=== PATIENT | male | born 1945 | race Caucasian/White ===

== ENCOUNTER 2018-09-06 13:33 | Inpatient (IN) | payer OTHER ==
--- NOTE | 2018-09-06 13:43 | EDPHY ---
H & P Time Seen by Provider: 09/06/18 13:43 HPI/ROS: CHIEF COMPLAINT: [ ] HISTORY OF PRESENT ILLNESS: [Need 4: Location, Duration, Severity, Quality, Context, Timing Modifying Factors, Associated S&S] REVIEW OF SYSTEMS: A comprehensive 10 point review of systems is otherwise negative aside from elements mentioned in the history of present illness. Source: Patient Exam Limitations: No limitations - Medical/Surgical History Hx Asthma: No Hx Chronic Respiratory Disease: No Hx Diabetes: No Hx Cardiac Disease: No Hx Renal Disease: No Hx Cirrhosis: No Hx Alcoholism: No Hx HIV/AIDS: No Hx Splenectomy or Spleen Trauma: No Other PMH: PMH: arrythmia (benign?), GERD, bursitis,. PSH: tonsillectomy - Social History Smoking Status: Never smoked - Physical Exam Exam: General Appearance: [Alert, no distress] Eyes: [Pupils equal and round no pallor or injection] ENT, Mouth: [Mucous membranes moist] Respiratory: [There are no retractions, lungs are clear to auscultation] Cardiovascular: [Regular rate and rhythm] Gastrointestinal: [Abdomen is soft and nontender, no masses, bowel sounds normal] Neurological: [A&O, normal motor function, normal sensory exam, normal cranial nerves] Skin: [Warm and dry, no rashes] Musculoskeletal: [Neck is supple nontender] Extremities: [symmetrical, full range of motion] Psychiatric: [Patient is oriented X 3, there is no agitation] Allergies/Adverse Reactions: No Known Allergies Allergy (Verified 09/06/18 13:42) Home Medications: Medication Instructions Recorded Lisinopril [Zestril 20 mg (*)] 20 mg PO DAILY 10/30/15 Omeprazole [Prilosec] 40 mg PO DAILY 10/30/15 Departure - Departure Condition: Fair Referrals: Patient,NotPresent [Primary Care Provider] - As per Instructions
--- NOTE | 2018-09-06 13:51 | EDPHY ---
H & P Time Seen by Provider: 09/06/18 13:43 HPI/ROS: Chief complaint. Syncope HPI. 72-year-old male presents emergency department by EMS after syncopal episode. He was standing at a store and felt a pain at the back of his neck. He then had syncopal episode. Duration is unknown. Per EMS and the rhythm strip shows frequent PVCs about every 4th beat. Patient denies chest discomfort or shortness of breath. No abdominal pain. He feels generally weak. He had a dog bite to his left hand by family pet 2 days ago. It is now red and swollen. He has had previous syncope. Previous workup that shows arrhythmia but unknown whether this is benign or malignant. No fever cough. No unusual leg pain or swelling ROS 10 systems were reviewed and negative with the exception of the elements mentioned in the history of present illness Past Medical/Surgical History: A arrhythmia, GERD, bursitis, tonsillectomy Social History: , nonsmoker, no alcohol Smoking Status: Never smoked Physical Exam: General Appearance: Alert well-developed male mild distress vital signs stable Eyes: Pupils equal and round no pallor or injection. ENT, Mouth: Mucous membranes are moist. Respiratory: There are no retractions, lungs are clear to auscultation. Cardiovascular: Regular rate and rhythm. Gastrointestinal: Abdomen is soft and nontender, no masses, bowel sounds normal. Neurological: Awake and alert, sensory and motor exams grossly normal. Skin: Warm and dry, no rashes. Musculoskeletal: Neck is supple nontender. Extremities symmetrical, full range of motion. Left hand shows evidence of dog bite with now swelling and erythema especially the base of his right index finger and extending into the hand Psychiatric: Patient is oriented X 3, there is no agitation. Constitutional: Initial Vital Signs Temperature (C) 36.5 C 09/06/18 13:42 Heart Rate 88 09/06/18 13:42 Respiratory Rate 16 09/06/18 13:42 Blood Pressure 125/74 H 09/06/18 13:42 O2 Sat (%) 96 09/06/18 13:42 O2 Delivery Mode Room Air Allergies/Adverse Reactions: No Known Allergies Allergy (Verified 09/06/18 13:42) Home Medications: Medication Instructions Recorded Lisinopril [Zestril 20 mg (*)] 20 mg PO DAILY 10/30/15 Medical Decision Making - Diagnostics EKG Interpretation: EKG interpreted by me shows normal sinus rhythm normal interval and axis. QRS is normal. There is no significant ST elevation or depression. There is 1 PVC. Rate is 89 rhythm strip showed frequent PVCs Imaging Results: Imaging Impressions Chest X-Ray 09/06/18 13:53 Impression: 1. No acute pulmonary disease. 2. Consider chest two views when the patient's medical condition permits. Procedures: IV normal saline, monitor ED Course/Re-evaluation: Re-evaluation patient is stable. Patient and I discussed imaging lab an EKG results. We discussed treatment plan including recommendation for admission. He expresses understanding and agreement Differential Diagnosis: I considered acute coronary syndrome, dysrhythmia. Patient also has infected dog bite left hand. - Data Points Laboratory Results: Laboratory Results 09/06/18 13:45 09/06/18 13:45 09/06/18 09/06/18 09/06/18 13:50 13:45 13:45 WBC 14.07 10^3/uL H 10^3/uL (3.80-9.50) RBC 5.23 10^6/uL 10^6/uL (4.40-6.38) Hgb 16.4 g/dL g/dL (13.7-17.5) Hct 48.1 % % (40.0-51.0) MCV 92.0 fL fL (81.5-99.8) MCH 31.4 pg pg (27.9-34.1) MCHC 34.1 g/dL g/dL (32.4-36.7) RDW 13.6 % % (11.5-15.2) Plt Count 194 10^3/uL 10^3/uL (150-400) MPV 10.9 fL fL (8.7-11.7) Neut % (Auto) 69.7 % % (39.3-74.2) Lymph % (Auto) 19.5 % % (15.0-45.0) [place] % (Auto) 8.7 % % (4.5-13.0) Eos % (Auto) 1.1 % % (0.6-7.6) Baso % (Auto) 0.6 % % (0.3-1.7) Nucleat RBC Rel Count 0.0 % % (0.0-0.2) Absolute Neuts (auto) 9.80 10^3/uL H 10^3/uL (1.70-6.50) Absolute Lymphs (auto) 2.75 10^3/uL 10^3/uL (1.00-3.00) Absolute Monos (auto) 1.23 10^3/uL H 10^3/uL (0.30-0.80) Absolute Eos (auto) 0.16 10^3/uL 10^3/uL (0.03-0.40) Absolute Basos (auto) 0.08 10^3/uL 10^3/uL (0.02-0.10) Absolute Nucleated RBC 0.00 10^3/uL 10^3/uL (0-0.01) Immature Gran % 0.4 % % (0.0-1.1) Immature Gran # 0.05 10^3/uL 10^3/uL (0.00-0.10) Sodium 135 mEq/L mEq/L (135-145) Potassium 5.0 mEq/L mEq/L (3.5-5.2) Chloride 102 mEq/L mEq/L (97-110) Carbon Dioxide 22 mEq/l mEq/l (22-31) Anion Gap 11 mEq/L mEq/L (6-14) BUN 34 mg/dL H mg/dL (7-23) Creatinine 1.7 mg/dL H mg/dL (0.7-1.3) Estimated GFR 40 Glucose 109 mg/dL H mg/dL (70-100) Calcium 9.7 mg/dL mg/dL (8.5-10.4) POC Troponin I 0.00 ng/mL ng/mL (0.00-0.08) NT-Pro-B Natriuret Pep 458 pg/mL H pg/mL (0-125) Medications Given: Discontinued Medications Amoxicillin/Clavulanate Potassium (Augmentin 875mg) 875 mg PO EDNOW ONE PRN Reason: Protocol Stop: 09/06/18 14:24 Last Admin: 09/06/18 14:41 Dose: 875 mg Sodium Chloride (Ns) 1,000 mls @ 0 mls/hr IV EDNOW ONE; Wide Open PRN Reason: Protocol Stop: 09/06/18 13:54 Last Admin: 09/06/18 14:04 Dose: 1,000 mls Point of Care Test Results: Chemistry 09/06/18 13:50 POC Troponin I 0.00 ng/mL ng/mL (0.00-0.08) Departure - Departure Disposition: [facility]patient Acute Clinical Impression: Syncope Qualifiers: Syncope type: unspecified Qualified Code(s): R55 - Syncope and collapse Cellulitis Qualifiers: Site of cellulitis: extremity Site of cellulitis of extremity: upper extremity Laterality: left Qualified Code(s): L03.114 - Cellulitis of left upper limb Condition: Fair
[2018-09-06] MEDS ORDERED: NS 1,000 ML IV ONE (13:53)
[2018-09-06 14:01] LABS: PLATELET COUNT 194 10^3/uL (150-400)
[2018-09-06] MEDS ORDERED: AMOXICILLIN/CLAVULANATE POT 875/125 MG TAB PO ONE (14:23)
[2018-09-06] MEDS ORDERED: PROMETHAZINE HCL 25 MG/ML INJ IVP PRN (15:08)
[2018-09-06] MEDS ORDERED: ONDANSETRON DISINTEGRATING 4 MG TAB PO PRN (15:08)
[2018-09-06] MEDS ORDERED: ACETAMINOPHEN 325 MG TAB PO PRN (15:08)
[2018-09-06] MEDS ORDERED: ONDANSETRON 4 MG/2 ML VIAL IVP PRN (15:08)
[2018-09-06] MEDS ORDERED: NS 1,000 ML IV SCH (15:15)
--- NOTE | 2018-09-06 15:48 | PDGENHP ---
History and Physical - Chief Complaint syncope - History of Present Illness 72 yo M with PMH of HTN presenting following a syncopal event at work today. 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 He states he essentially crumpled behind the register, did not strike his head or neck or suffer any other injuries on the way down. He felt essentially normal when he woke up and currently feels normal. He notes the pain in the back of his head seems gone currently. He states he had a similar episode about 3 years ago at which time he fainted while in the shower--he was seen by a field adjuster through [facility] at that time, wore a heart monitor for 3 months and had no reason for his syncope discovered. Reviewed notes from Dr. Keith Martinez whom he saw at that time, he underwent a stress echo which was limited but not clearly abnormal, a nuc stress was recommended but at that time he declined. He does note that he occasionally will have what he describes as dizzy spells that are sometimes associated with vision changes where he will feel like his eyes cannot align on things properly. He has seen his usual doctor about this but there has been no etiology for this discovered either--unclear what workup was completed. He notes that earlier in the week his dog bit his hand when he startled him from sleep, he has redness and swelling around his left 2nd and 3rd fingers and some streaking redness from the area as well. He denies having any fevers or chills and states that hand has not been bothering him very much. He does know that his dog is up to date on his shots etc. History Information - Allergies/Home Medication List Allergies/Adverse Reactions: No Known Allergies Allergy (Verified 09/06/18 13:42) Home Medications: Lisinopril [Zestril 20 mg (*)] 20 mg PO DAILY 10/30/15 [Last Taken 09/06/18] I have personally reviewed and updated: family history, medical history, social history, surgical history - Past Medical History GERD, hypertension, migraines - Surgical History Reports: cholecystectomy Additional surgical history: cataract surgery - Family History Positive for: non-pertinent - Social History Smoking Status: Never smoked Alcohol Use: None Drug Use: None Additional social history: , has epilepsy Review of Systems Review of Systems: ROS: 10pt was reviewed & negative except for what was stated in HPI & below Physical Exam Physical Exam: Temp Pulse Resp BP Pulse Ox 36.5 C 84 18 113/68 96 09/06/18 13:42 09/06/18 15:30 09/06/18 15:30 09/06/18 15:30 09/06/18 15:30 Constitutional: no apparent distress, appears nourished Eyes: PERRL, anicteric sclera Ears, Nose, Mouth, Throat: moist mucous membranes, hearing normal Cardiovascular: regular rate and rhythym, no murmur, rub, or gallop, edema Respiratory: no respiratory distress, no rales or rhonchi, clear to auscultation Gastrointestinal: normoactive bowel sounds, soft, non-tender abdomen Genitourinary: no bladder tenderness Skin: warm, normal color Musculoskeletal: full muscle strength, no muscle tenderness Neurologic: AAOx3 Psychiatric: interacting appropriately, not anxious, not encephalopathic Lab Data & Imaging Review 09/06/18 13:45 09/06/18 13:45 WBC 14.07 10^3/uL (3.80-9.50) H 09/06/18 13:45 RBC 5.23 10^6/uL (4.40-6.38) 09/06/18 13:45 Hgb 16.4 g/dL (13.7-17.5) 09/06/18 13:45 Hct 48.1 % (40.0-51.0) 09/06/18 13:45 MCV 92.0 fL (81.5-99.8) 09/06/18 13:45 MCH 31.4 pg (27.9-34.1) 09/06/18 13:45 MCHC 34.1 g/dL (32.4-36.7) 09/06/18 13:45 RDW 13.6 % (11.5-15.2) 09/06/18 13:45 Plt Count 194 10^3/uL (150-400) 09/06/18 13:45 MPV 10.9 fL (8.7-11.7) 09/06/18 13:45 Neut % (Auto) 69.7 % (39.3-74.2) 09/06/18 13:45 Lymph % (Auto) 19.5 % (15.0-45.0) 09/06/18 13:45 [place] % (Auto) 8.7 % (4.5-13.0) 09/06/18 13:45 Eos % (Auto) 1.1 % (0.6-7.6) 09/06/18 13:45 Baso % (Auto) 0.6 % (0.3-1.7) 09/06/18 13:45 Nucleat RBC Rel Count 0.0 % (0.0-0.2) 09/06/18 13:45 Absolute Neuts (auto) 9.80 10^3/uL (1.70-6.50) H 09/06/18 13:45 Absolute Lymphs (auto) 2.75 10^3/uL (1.00-3.00) 09/06/18 13:45 Absolute Monos (auto) 1.23 10^3/uL (0.30-0.80) H 09/06/18 13:45 Absolute Eos (auto) 0.16 10^3/uL (0.03-0.40) 09/06/18 13:45 Absolute Basos (auto) 0.08 10^3/uL (0.02-0.10) 09/06/18 13:45 Absolute Nucleated RBC 0.00 10^3/uL (0-0.01) 09/06/18 13:45 Immature Gran % 0.4 % (0.0-1.1) 09/06/18 13:45 Immature Gran # 0.05 10^3/uL (0.00-0.10) 09/06/18 13:45 Sodium 135 mEq/L (135-145) 09/06/18 13:45 Potassium 5.0 mEq/L (3.5-5.2) 09/06/18 13:45 Chloride 102 mEq/L (97-110) 09/06/18 13:45 Carbon Dioxide 22 mEq/l (22-31) 09/06/18 13:45 Anion Gap 11 mEq/L (6-14) 09/06/18 13:45 BUN 34 mg/dL (7-23) H 09/06/18 13:45 Creatinine 1.7 mg/dL (0.7-1.3) H 09/06/18 13:45 Estimated GFR 40 09/06/18 13:45 Glucose 109 mg/dL (70-100) H 09/06/18 13:45 Calcium 9.7 mg/dL (8.5-10.4) 09/06/18 13:45 POC Troponin I 0.00 ng/mL (0.00-0.08) 09/06/18 13:50 NT-Pro-B Natriuret Pep 458 pg/mL (0-125) H 09/06/18 13:45 Visualized and Interpreted Chest x-ray results: Yes Chest X-Ray results: no infiltrate Visualized and Interpreted EKG results: Yes EKG Interpretation: Positive for: normal sinsus rhythm EKG additional interpertation: VPCs Assessment & Plan Assessment: Cellulitis (Acute) Syncope (Acute) 72 yo M w/HTN and prior episode of syncope presenting with syncope and cellulitis # syncope: patient with prior episode that sounded similar, possibly vagal in etiology, but this episode really without warning. He does have KAREN and infection as below as well as slight hypotension, so possibly vagal episode exacerbated by volume depletion/hypotension. Plan for now will monitor on tele, serial ecg/serial trops, echo in am. # cellulitis: following bite by his dog, dog is up to date as is patient on vaccines, will start unasyn for now, if not improving consider ortho consult # KAERN: patient states he has not drank anything all day and possibly due to volume depletion in setting of being on EVELYN-I, will start IVF, check urine na/ creatinine, hold lisinopril. BP was a bit on the low end on arrival so query HD mediated and due to hypotension as below. # htn: as above, BP has been a bit on the low end since arrival, holding lisinopril for now and will monitor bp to determine if dosing needs adjustment # observation status Patient new to my care. Old records reviewed and summarized as above. care plan reviewed with ER doctor as above.
--- NOTE | 2018-09-06 16:02 | CPEKG ---
Test Reason : OPEN Blood Pressure : / mmHG Vent. Rate : 089 BPM Atrial Rate : 090 BPM P-R Int : 170 ms QRS Dur : 106 ms QT Int : 364 ms P-R-T Axes : 046 029 056 degrees QTc Int : 443 ms Sinus rhythm Ventricular premature complex Low voltage, extremity leads Confirmed by Conor Perry ([id number]) on 09/06/2018 4:01:35 PM Referred By: Conor Perry Confirmed By:Conor Perry
[2018-09-06] MEDS: HYDROCODONE/APAP 5/325 TAB PO PRN (22:57)
[2018-09-06] MEDS: AMPICILLIN/SULBACTAM 3 GM in NS 100 ML IV SCH (23:01)
[2018-09-07] MEDS: AMPICILLIN/SULBACTAM 3 GM in NS 100 ML IV SCH ×4 (03:42→20:52)
[2018-09-07] MEDS: LISINOPRIL 20 MG TAB PO SCH (08:32)
--- NOTE | 2018-09-07 10:39 | ECHO ---
[email or web address] [address] Main: [phone] Echocardiography Examination Transthoracic Name: JAIRO STEVEN MR#: [id number] Study Date: 09/07/2018 Study Time: 09:26 AM Date of : 1945 Age: 72 year(s) Height: 177.8 cm (70 in.) Weight: 103.42 kg (228 lb.) BSA: 2.21 m2 Gender: Male Examination: Echo Contrast: Image Quality: Good Rhythm: Heart Rate: BP: 101 mmHg/55 mmHg Indication: Cardiac: syncope Procedure Staff Referring Physician: Chemistry Tutor: Сергей Al RDCS Reading Physician: Isidoro Montenegro MD Requesting Provider: Indication: Cardiac: syncope Measurements Chambers AV/MV Label Value Normal Value Label Value Normal Value EF lower range (%) 60 % AR Defect Area (ERO) 0.09 cm2 EF upper range (%) 65 % AR PHT 0.65 s IVSd, 2D 1 cm (0.6cm - 1.1cm) AR PHT 649 ms LVDd, 2D 4.4 cm (4.2cm - 5.9cm) AR PISA Radius 0.4 cm LVDs, 2D 2.8 cm (2.1cm - 4cm) AR Reg. Fraction 19 % LVEF, 2D 64 % (54% - 74%) AR Reg. Volume 15 ml LVOT PGmax 4 mmHg AR Vena contracta 0.5 cm LVOT PGmean 2 mmHg AR Vmax 3.56 m/s LVOT Vmax 1.01 m/s (0.7m/s - 1.1m/s) AR VTI 162 cm LVOT Vmean 0.67 m/s MV A Vmax 0.9 m/s LVOTd 2.1 cm (1.9cm - 2.1cm) MV E' lateral 0.06 m/s LVPWd, 2D 1.1 cm (0.6cm - 1cm) MV E' mean 0.06 m/s RVDd, 2D 2 cm (1.9cm - 3.8cm) MV E' septal 0.06 m/s LA Area, A2C 18.2 cm2 (0cm2 - 20cm2) MV E Vmax 0.73 m/s LA Volume, A2C 54 ml (18ml - 58ml) MV E/A 0.81 LA Volume, A4C 40 ml (16ml - 34ml) MV E/E' lateral 12.9 LA Volume, BP 47 ml (18ml - 58ml) MV E/E' mean 12.17 LAESV index, BP 21.3 ml/m2 MV E/E' septal 11.5 (0.45 - 1.25) LAESV index, MOD4 18.1 ml/m2 MV PGmax 4 mmHg RA Area 14.7 cm2 MV PGmean 1 mmHg Patient: JAIRO STEVEN Study Date: 09/07/2018 Page 1 of 3 09:26 AM Additional Vessels MV VTI 24.3 cm Label Value Normal Value MVA D (continuity eq.) 3.2 cm2 AoAsc 3.7 cm TV/PV AoRoot, MM 3.5 cm (2.2cm - 3.7cm) Label Value Normal Value PV PGmax 2 mmHg PV Vmax, Caliper 0.76 m/s (0.6m/s - 0.9m/s) Conclusions A cause for the patient's syncope is not identified on the basis of this study. Other than mild valvular changes that would be unlikely to be associated with syncope this is a normal echocardiogram. Left Ventricle: Left ventricle is normal in size. There is no regional wall motion abnormalities. Left ventricular diastolic function parameters are normal. Right Ventricle: Right ventricular systolic function is normal. Left Atrium Measurements LAESV index, BP is 21.3 ml/m2. Right Atrium: The right atrium is normal in size. Mitral Valve: There is mild mitral calcification. Aortic Valve: Mild to moderate aortic regurgitation is present. Aortic leaflets exhibit mild calcification. Pulmonic Valve: No significant pulmonic valve regurgitation is evident. Findings Left Ventricle: Left ventricle is normal in size. Normal global systolic left ventricular function. The ejection fraction, measured by 2D, is 64 %. EF range is estimated at 60 % - 65 %. Left ventricle wall thickness is normal. There is no regional wall motion abnormalities. Left ventricular diastolic function parameters are normal. No LV hypertrophy. Right Ventricle: Normal size right ventricle. Right ventricular systolic function is normal. Left Atrium Measurements LAESV index, BP is 21.3 ml/m2. Right Atrium: The right atrium is normal in size. Right Atrium Measurements RA Area is 14.7 cm2. Mitral Valve: Trivial mitral regurgitation. No mitral valve stenosis. There is mild mitral calcification. Aortic Valve: Mild to moderate aortic regurgitation is present. There is mild aortic stenosis. Aortic leaflets exhibit mild calcification. Patient: JAIRO STEVEN Study Date: 09/07/2018 Page 2 of 3 09:26 AM The aortic valve is trileaflet. Tricuspid Valve: Tricuspid valve leaflets are structurally normal. No significant tricuspid regurgitation. Pulmonic Valve: Pulmonic leaflets are structurally normal. No significant pulmonic valve regurgitation is evident. Aorta: The aorta is normal. The aortic root size in M-mode measures 3.5 cm. The ascending aorta measures 3.7 cm. Ascending aorta is normal in size. Aorta Measurements AoRoot, MM is 3.5 cm. Exam Details Procedure Ordered: Echo Procedure Status: Routine study Image Quality: Good Facility Location: Cardiac Echo 1 (No Signature Object) Patient: JAIRO STEVEN Study Date: 09/07/2018 Page 3 of 3 09:26 AM [id number]
--- NOTE | 2018-09-07 11:13 | CPEKG ---
Test Reason : OPEN Blood Pressure : / mmHG Vent. Rate : 076 BPM Atrial Rate : 077 BPM P-R Int : 171 ms QRS Dur : 111 ms QT Int : 394 ms P-R-T Axes : 034 041 059 degrees QTc Int : 444 ms Sinus rhythm Multiple ventricular premature complexes UNIFOCAL WITH A MORPHOLOGY MOST CONSISTENT WITH RIGHT VENTR ICULAR OUTFLOW TRACT ORIGIN Low voltage, extremity leads Confirmed by Isidoro Montenegro ([id number]) on 09/07/2018 11:13:28 AM Referred By: Chente Jackson Confirmed By:Isidoro Montenegro
[2018-09-07] MEDS ORDERED: DIAZEPAM 5 MG TAB PO ONE (12:49)
[2018-09-07] MEDS ORDERED: FAMOTIDINE 20 MG TAB PO ONE (12:49)
[2018-09-07] MEDS ORDERED: TEMAZEPAM 15 MG CAP PO PRN (12:49)
[2018-09-07] MEDS ORDERED: ASPIRIN EC 325 MG TAB PO ONE (12:49)
[2018-09-07] MEDS ORDERED: NITROGLYCERIN 0.4 MG BTL SL PRN (12:49)
[2018-09-07] MEDS ORDERED: fentaNYL 100 MCG/2 ML INJ ONE ×2 (13:00→15:13)
[2018-09-07] MEDS ORDERED: LIDOCAINE 1% 300 MG/30 ML SDV ONE ×2 (13:00→15:13)
[2018-09-07] MEDS ORDERED: MIDAZOLAM 2 MG/2 ML VIAL ONE ×2 (13:00→15:13)
[2018-09-07] MEDS ORDERED: NS 1,000 ML IV SCH (13:00)
[2018-09-07] MEDS ORDERED: VERAPAMIL 5 MG/2 ML VIAL ONE ×2 (13:01→15:13)
[2018-09-07] MEDS ORDERED: HEPARIN 10,000 UNIT/10 ML MDV (1,000 UNIT/ML) ONE ×2 (13:01→15:13)
[2018-09-07] MEDS ORDERED: IOPAMIDOL (ISOVUE-370) 150 ML BTL IV ONE ×2 (13:01→15:13)
--- NOTE | 2018-09-07 13:49 | PDPROPOC ---
Sedation Plan of Care Sedation Plan of Care: vital signs stable, mental status noted, patient educated of risks, benefits, alternatives, patient can tolerate sedation ASA Classification: ASA 3 Planned drugs: fentanyl, midazolam Mallampati Score: Class 2 Mallampati Reference Image: Patient passed 3-3-2 rule?: No
--- NOTE | 2018-09-07 13:50 | PDHPUP ---
History & Physical Update H&P update statement: This history and physical update is based on an assessment of the patient which was completed after admission or registration (within 24 hours), but prior to the surgery/procedure. H&P update: H&P reviewed & patient examined, changes noted H&P changes: positive troponin and unexplained syncope.
[2018-09-07 14:11] LABS: INR 1.08 (0.83-1.16); PROTIME(PATIENT) 13.6 SEC (12.0-15.0)
--- NOTE | 2018-09-07 14:12 | ASMTCMCOM ---
CM Note CM Note Notes: 09/07/2018 Case Management Note Pt admitted for syncope. Met w/pt during rounds. ID consult pending for evaluation of hand after dog bite. EKG and ECHO today. Angiogram tomorrow per RN. There are no therapy evals ordered today. Pt is and was independent with ADL's prior to admission. Possibly IV antibiotic needs at d/c pending eval by ID. Case Management d/c poc: anticipating independent. Will follow ID note for instructions on discharge medication needs. Case Management to follow. Date Signed: 09/07/2018 02:11 PM Electronically Signed By:Erica Carbajal RN
[2018-09-07 14:34] LABS: PLATELET COUNT 154 10^3/uL (150-400)
[2018-09-07] MEDS ORDERED: diphenhydrAMINE 25 MG CAP PO ONE (14:54)
--- NOTE | 2018-09-07 16:29 | PDDXCAT ---
Diagnostic Cath Note - . Date: 09/07/18 Power Plant Technician: Lan Indication: CCC Class III and IV angina on medical treatment, other (syncope) - Procedure Access: right wrist Procedure: left heart catheterization, coronary angiography, left ventriculogram - Materials Left Heart Cath size: 6F Left Heart Cath materials: JL3.5, JR4.0, pigtail - Findings-Left Heart Catheterization LM: The left main bifurcates into LAD and circumflex system. The vessel has a 50 % lesion in the proximal and complex atheroma. LAD: The left anterior descending is mm in size. There is a 80% proximal LAD obstruction prior to the principal diagonal. LCX: The left circumflex is mm in size. There is an 80% stenosis in the proximal left circumflex. There are well developed, robust left to collaterals to the distal right coronary. RCA: The right coronary artery is dominant and totally occluded. EDP: 13mmHg LVEF: 65% Wall motion: On the LV gram there is normal LV systolic function. The EF is 65% . There are no resting segmental wall motion abnormalities. The visualized portion of the thoracic aortic valve reveals three sinuses of valsalva most consistent with a trileaflet valve. There is no gradient on pullback across the aortic valve. There is no evidence of christina dissection or aneurysm formation of the thoracic aorta. - Findings-Right Heart Catheterization AO: Complications: NONE Estimated blood loss: <50ml Closure method: TR Band Assessment: The patient has severe seneca vessel coronary artery disease with significant stenosis of 80% or greater in the proximal left circumflex, proximal left anterior descending artery and total occlusion of the right coronary system, which is collateralized from the right coronary artery. The ejection fraction is normal measuring 65% with no wall motion abnormalities. Plan: The patient has multivessel coronary artery disease and will need a coronary artery bypass surgery with ANDERSON to the LAD and conduits to the distal RCA circumflex and diagonal systems. Intervention: NONE Patient Problems: Problems Problem Status Onset Leg weakness, bilateral Acute Cholecystitis Acute Weakness Acute Syncope Acute Cellulitis Acute
[2018-09-07] MEDS ORDERED: ATROPINE SULFATE 1 MG/10 ML SYR IVP PRN (16:45)
--- NOTE | 2018-09-07 17:06 | GCON ---
[f rep st] CONSULTATION INPATIENT INFECTIOUS DISEASE CONSULTATION REFERRING PHYSICIAN: Chente Jackson MD REASON FOR CONSULTATION: Dog bite, left hand. HISTORY OF PRESENT ILLNESS: Patient is a 72-year-old male who was admitted to [facility] in the afternoon of 09/06/2018. Patient was admitted for syncope at work. 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 The patient states that he had essentially the same episode about 3 years ago when he f ainted while he was in the shower. He had a cardiology workup at that time that revealed no abnormal ity. He has been asymptomatic since. The patient is undergoing a cardiac workup primarily, but it was noted on his admission that on (4 days ago), he was bitten by his own dog when he startled him from sleep. The bite occurred on t he left hand and resulted in puncture tafoya to the dorsum of the left hand. The dorsum of the left h and is mildly erythematous and edematous. Apparently yesterday on admission, the patient had red str eaking up his forearm. That is gone today with the initiation of empiric Unasyn. The patient is emma ble to make a fist with the left hand. He was unable to do this since Monday. There are slight are as of point tenderness on the dorsal aspect of his left hand, notably over the 2nd metacarpal. PAST MEDICAL HISTORY: 1. Reflux. 2. Hypertension. 3. Migraines. PAST SURGICAL HISTORY: 1. Status post cholecystectomy. 2. Status post cataract removal. MEDICATIONS: Antibiotics: Unasyn. ALLERGIES: No known medical allergies. SOCIAL HISTORY: The patient denies any tobacco use. No alcohol use and no drug use. The patient is and has a supportive . FAMILY HISTORY: Reviewed but noncontributory. REVIEW OF SYSTEMS: Other than that detailed above in the History of Present Illness, a comprehensive 10-system review is negative. PHYSICAL EXAMINATION: VITAL SIGNS: Temperature maximum is 37.0, temperature current is 36.5, heart rate is 78, respiratory rate is 16, blood pressure is 93/60. GENERAL: The patient is a well-formed, well-nourished older male in no acute distress. He is not toxic in appearance. He is alert and mariama ented x3. He is in a pleasant demeanor. HEENT: Normocephalic for age. Atraumatic. No scleral ict erus. No oral lesion or drainage from the nares. Eyes, lids and conjunctivae are within normal limi ts. Pupils are equal and round bilaterally. NECK: Supple. No meningismus. HEART: Regular rate a nd rhythm. No significant peripheral edema. SKIN: Warm and dry to the touch. EXTREMITIES: The kyara cuevas has a mild area of erythema on the dorsum of the left hand. There is a moderate amount of peggy a there too. His range of motion of the fingers #2 through #5 on the left hand is restricted seconda ry to the swelling and to pain. The patient also experiences pain with pressing the 2nd digit of the left hand on a solid surface. There is no fluctuance or drainage seen. MUSCULOSKELETAL: No other muscle belly tenderness is noted. No joint line effusion or arthritis is seen. NEUROLOGICAL: Crani al nerves 2 through 12 seem to be intact. Peripheral sensation seems intact in extremities. LABORATORY DATA: The patient has a CBC dated 09/07/2018, shows white blood cell count of 7.7, hemogl obin of 14.0, hematocrit of 42.5, and a platelet count of 154, differential is within normal limits. Serum chemistries on 09/07/2018, show sodium 137, potassium 4.3, chloride of 106, bicarb of 23, BUN of 23, and creatinine 1.0. Of note, the patient's white blood cell count on admission was 14.1. Microbiologic data: The patient currently has no micro specimens submitted. ASSESSMENT: Left hand cellulitis following a dog bite. DISCUSSION: The patient's dog has gotten shots for rabies and there is no concern on this level, alt jose there is concern that the patient has dorsal hand cellulitis. I agree with the choice of Unasy n and the patient appears to be tolerating this well. The primary issue for his hospitalization was his episode of syncope and the cardiac workup has priority. The patient is going for a cardiac arnold terization this afternoon. I would suspect we may need to do an MRI image of the left hand to try to determine if there is any extensor tendon involvement with the dog bite. Plan to do this will proba rakan tomorrow. PLAN: 1. Follow up on cardiac workup. 2. Continue Unasyn at present dose. 3. Plan MRI with contrast tomorrow of the left hand. 4. Follow the appearance of the left upper extremity. /[id number]/MODL
--- NOTE | 2018-09-07 17:22 | HOSPPROG ---
Hospitalist Progress Note Assessment/Plan: * Syncope - suspect due to cardiac ischemia - unstable angina * CAD - severe 3 vessel dz -needs CABG - CT surgery to consult * Left hand cellulitis due to dog bite -IV Unasyn -check MRI hand -ortho consulted * ARF due to dehydration -resolved with IVF * HTN -lisinopril - BP running low Subjective: left hand worse Objective: Vital Signs Temp Pulse Resp BP Pulse Ox 36.5 C 78 16 93/60 L 94 09/07/18 11:09 09/07/18 11:09 09/07/18 11:09 09/07/18 11:09 09/07/18 11:09 Laboratory Results 09/07/18 09:58 09/07/18 13:20 09/06/18 09/07/18 09/08/18 05:59 05:59 05:59 Intake Total 1850 600 Output Total 350 Balance 1500 600 PT 13.6 SEC (12.0-15.0) 09/07/18 13:20 INR 1.08 (0.83-1.16) 09/07/18 13:20 case d/w Dr. Montenegro, Dr. Nesbitt and Dr. Best Cath report reviewed - needs CABG - Physical Exam Constitutional: no apparent distress, appears nourished, not in pain Cardiovascular: regular rate and rhythym, no murmur, rub, or gallop Respiratory: no respiratory distress, no rales or rhonchi, clear to auscultation Gastrointestinal: normoactive bowel sounds, soft, non-tender abdomen, no palpable masses Skin: no rashes or abrasions, no fluctuance, no induration Neurologic: AAOx3, sensation intact bilaterally Psychiatric: interacting appropriately, not anxious, not encephalopathic, thought process linear ICD10 Worksheet Patient Problems: Problems Problem Status Onset Leg weakness, bilateral Acute Cholecystitis Acute Weakness Acute Syncope Acute Cellulitis Acute
[2018-09-07] MEDS ORDERED: GADOBUTROL 10 ML VIAL IVP ONE (21:29)
[2018-09-07] MEDS: HYDROCODONE/APAP 5/325 TAB PO PRN (22:36)
--- NOTE | 2018-09-07 23:15 | PDMN ---
Medical Necessity Medical necessity: [facility] M40 angina- 72yoM with syncope -also with dog bite to hand- pt underwent cardiac cath showing severe douglas vessel coronary artery disease with sig. stenosis of 80% or greater in prox. L circ., prox. LAD, and total occlusion of RC system. CABG needed -pending- L hand cellulitis also without improvement --- status changed to INPT 09/07 for ongoing med nec care > 2 MN.
[2018-09-08] MEDS: AMPICILLIN/SULBACTAM 3 GM in NS 100 ML IV SCH ×4 (03:35→21:31)
--- NOTE | 2018-09-08 05:52 | GCON ---
[f rep st] CONSULTATION DATE OF CONSULTATION: 09/07/2018 REASON FOR CONSULTATION: Infection of left hand. HISTORY OF PRESENTING COMPLAINT: The patient is a 72-year-old man who is in the hospital right now b ecause of episode of syncope related to cardiac disease. He also has a dog bite wound from being bit ten by his dog on Monday, that is, 3 days ago. His syncopal episode was Monday, 2 days ago, and since then he has been on antibiotics for the infection related to the dog bite. He underwent cardia c catheterization today with access through the right arm. EXAMINATION: He is a pleasant 72-year-old man. He has been afebrile since in the hospital and vital s stable. His left dorsal hand shows a couple of small puncture wounds at the level of the metacarpo phalangeal joints but in between the fingers at the index and middle finger, and 1 a little bit more proximally on the dorsum more radially. There is diffuse redness of the dorsum of the hand and tende rness that I would describe as moderate. He has lack of range of motion and feels pain when trying t o flex his index and middle metacarpophalangeal joints beyond about 30 or 40 degrees. The pain is in the dorsum and is not described as being deep. There is no tenderness on the volar surface or of th e joint laterally. He has no axial compression tenderness. LABORATORY: Exam showed white count was elevated earlier in his stay, but has come down. IMPRESSION: This appears to be a cellulitis. He did report to me that he had some lymphangitis asce nding up the arm, which has resolved. My level of suspicion for a joint infection is low. I have ma rked the edges of the erythematous area and we will keep an eye on things and response to the antibio tics. /[id number]/MODL
[2018-09-08] MEDS: LISINOPRIL 20 MG TAB PO SCH (08:40)
--- NOTE | 2018-09-08 10:54 | PCMIDPN ---
Assessment/Plan: Assessment: Left hand cellulitis following dog bite. Improving on IV Unasyn. Results from the cardiac catheterization noted. Patient will be going to the operating room for coronary artery bypass grafting on Monday morning. Plan will be to continue the Unasyn through this procedure. Given time on treatment I feel that the procedure should go ahead especially noting the severity of coronary artery disease. Plan: 1. Continue IV Unasyn at present dosing. 2. Follow appearance of left hand infection. 3. Follow up on surgical results. 09/08/18 10:51 Subjective: Patient is sitting up in a chair in his hospital room. He is in good spirits. He is very happy that a cause of his symptoms have been found from a cardiovascular standpoint. States that his left hand is feeling much better and he is able to make a fist with his 2nd 3rd and 4th fingers today his thumb is still somewhat restricted. Objective: Unasyn # 2 Vital Signs Temp Pulse Resp BP Pulse Ox 36.6 C 69 18 100/53 L 94 09/08/18 08:00 09/08/18 08:00 09/08/18 08:00 09/08/18 08:00 09/08/18 08:00 Laboratory Results 09/07/18 13:20 09/07/18 09/08/18 09/09/18 05:59 05:59 05:59 Intake Total 1050 Output Total 400 Balance 650 - Physical Exam General Appearance: WD/WN, alert, no apparent distress, non-toxic Respiratory: lungs clear, normal breath sounds, No respiratory distress Cardiac/Chest: regular rate, rhythm, No tachycardia Extremities: non-tender, swelling (Mild left hand), erythema (Mild left hand dorsum), No normal inspection (Left hand with some residual dorsal erythema. Mild flexion restriction of the 2nd digit.) Skin: normal color, warm/dry, No rash Neuro/Psych: alert, normal mood/affect, oriented x 3 ICD10 Worksheet Patient Problems: Problems Problem Status Onset Cellulitis Acute Syncope Acute Cholecystitis Acute Leg weakness, bilateral Acute Weakness Acute
--- NOTE | 2018-09-08 11:23 | GCON ---
[f rep st] CONSULTATION REFERRING PHYSICIAN: Isidoro Montenegro MD The patient is seen at the request of Dr. Montenegro with the patient's permission. IMPRESSION: 1. Critical 3-vessel disease, symptomatic with unstable angina, atypical. 2. Mild aortic stenosis with ilpo-la-pcomdeoz aortic insufficiency. 3. Obesity. 4. Alcoholism by history, none for 30 years. 5. Resolving cellulitis from a dog bite on his left hand. RECOMMENDATIONS: This gentleman should undergo coronary artery revascularization on this admission. His overall risk is 1%. We will evaluate his aortic valve with intraoperative SANCHEZ. We will attempt to leave that unless his aortic insufficiency is more significant than noted on transthoracic echo. He was advised of the same. He is well informed and appreciative and wishes to proceed with surgery Monday morning. I advised him if he had further neck pain, that this represents his angina, he shou perry let us know and we would proceed sooner given the critical nature of his coronary disease. CHIEF COMPLAINT: This is a pleasant 72-year-old gentleman who presented with pain in the back of his neck and a syncopal episode while at work. He had had several prior episodes over the years. He leon d a Cardiology workup several years ago, which was negative at that time. He underwent diagnostic le ft heart catheterization by Dr. Montenegro, which showed complete occlusion of the right coronary artery with diffuse distal disease and left main equivalent with normal LV function. Echo revealed moderate aortic insufficiency with mild aortic sclerosis and minimal gradient, moderately enlarged ascending aorta at 3.7. Denies chronic anginal symptoms and pain in the back of his neck is new onset and like ly represents angina. His medical history is as documented in the chart. He has no known allergies. He was on lisinopril which has been held for mild elevation of his creatinine on admission. SOCIAL HISTORY: He never smoked. He is an alcoholic, although has not drank for 30 years. REVIEW OF SYSTEMS: Otherwise unremarkable. PHYSICAL EXAMINATION: GENERAL: This is a moderately overweight elderly gentleman, alert, oriented, in no apparent distress. NECK: Without bruits. HEART: Rate is regular with a murmur, 2/6 across th e precordium. LUNGS: Clear. ABDOMEN: Protuberant, nontender. Bowel sounds are active. He has no history of varices, GI bleed, or known hepatic pathology. EXTREMITIES: Femoral pulses are 2+. Ped als are 1+. He has no edema, no varicosities. Cath was reviewed. /[id number]/MODL
--- NOTE | 2018-09-08 11:51 | ASMTCMCOM ---
CM Note CM Note Notes: 09/08/2018 Case Management Note Met w/pt during rounds this morning. Pt will have CABG on Monday at 7:15 am. 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 family in town assisting with transportation needs. Case Management d/c poc: to be determined after surgery. Case Management to follow. Date Signed: 09/08/2018 11:50 AM Electronically Signed By:Erica Carbajal RN
[2018-09-08] MEDS ORDERED: PNEUMOC 13-VAL CONJ-DIP CRM/PF 0.5 ML SYR (PREVNAR 13) IM ONE ×2 (13:44→16:00)
--- NOTE | 2018-09-08 15:09 | HOSPPROG ---
Hospitalist Progress Note Assessment/Plan: * Unstable angina presenting as syncope and neck pain * CAD - critical 3 vessel dz -CABG Monday * Left hand cellulitis due to dog bite -IV Unasyn -maikel to proceed with CT surgery * ARF due to dehydration -resolved with IVF * HTN -lisinopril Subjective: Hand is improving, no further syncope or neck pain Objective: Vital Signs Temp Pulse Resp BP Pulse Ox 36.4 C 67 16 119/59 L 96 09/08/18 11:53 09/08/18 11:53 09/08/18 11:53 09/08/18 11:53 09/08/18 11:53 Laboratory Results 09/07/18 13:20 09/07/18 09/08/18 09/09/18 05:59 05:59 05:59 Intake Total 1050 Output Total 400 Balance 650 PT 13.6 SEC (12.0-15.0) 09/07/18 13:20 INR 1.08 (0.83-1.16) 09/07/18 13:20 d/w Dr Nesbitt - maikel to proceed with CT surgery MRI hand - cellulitis - no deeper infection - Physical Exam Constitutional: no apparent distress, appears nourished, not in pain Cardiovascular: regular rate and rhythym, no murmur, rub, or gallop Respiratory: no respiratory distress, no rales or rhonchi, clear to auscultation Gastrointestinal: normoactive bowel sounds, soft, non-tender abdomen, no palpable masses Skin: other (hand with decreased swelling and erythema, ROM improved) Musculoskeletal: full muscle strength, no muscle tenderness, normal joint ROM Neurologic: AAOx3, sensation intact bilaterally Psychiatric: interacting appropriately, not anxious, not encephalopathic, thought process linear ICD10 Worksheet Patient Problems: Problems Problem Status Onset Leg weakness, bilateral Acute Cholecystitis Acute Weakness Acute Syncope Acute Cellulitis Acute
--- NOTE | 2018-09-08 15:49 | SOAPPROG ---
SOAP Progress Note Assessment/Plan: Assessment:Improving Plan: Continue IV unasyn 09/08/18 15:49 Subjective: Feels less painful Objective: Vital Signs Temp Pulse Resp BP Pulse Ox 36.4 C 67 16 119/59 L 96 09/08/18 11:53 09/08/18 11:53 09/08/18 11:53 09/08/18 11:53 09/08/18 11:53 Laboratory Results 09/07/18 13:20 09/07/18 09/08/18 09/09/18 05:59 05:59 05:59 Intake Total 1050 Output Total 400 Balance 650 PT 13.6 SEC (12.0-15.0) 09/07/18 13:20 INR 1.08 (0.83-1.16) 09/07/18 13:20 Improved ROM and decreased erythema dorsum left hand ICD10 Worksheet Patient Problems: Problems Problem Status Onset Cellulitis Acute Syncope Acute Cholecystitis Acute Leg weakness, bilateral Acute Weakness Acute
[2018-09-09] MEDS: AMPICILLIN/SULBACTAM 3 GM in NS 100 ML IV SCH ×4 (03:51→20:19)
[2018-09-09] MEDS: HYDROCODONE/APAP 5/325 TAB PO PRN ×2 (03:56→16:37)
[2018-09-09] MEDS: LISINOPRIL 20 MG TAB PO SCH (08:47)
--- NOTE | 2018-09-09 10:03 | PDCARPN ---
Cardiology Progress Note Chief Complaint: My hand is better and I am feeling goog about my surgery. Assessment/Plan: Assessment:1. 3 vessel CAD: Plan for CABG tomorrow. Discussed risk benefit in detail and all questions answered. Plan:As above. 09/09/18 09:59 Reviewed/Discussed With: family, multidisciplinary team Objective: Vital Signs (8 Hrs) Temp Pulse Resp BP Pulse Ox 09/09/18 07:58 36.8 C 67 18 93/57 L 93 09/09/18 04:00 36.9 C 69 14 104/60 92 Intake/Output (24 Hrs) 09/08/18 09/09/18 09/10/18 05:59 05:59 05:59 Intake Total 1050 930 Output Total 400 Balance 650 930 Intake: Oral (ml) 750 650 IV Intake (ml) 200 60 IV Infused (ml) 100 220 Ampicillin/Sulbactam 3 gm 100 220 In Ns 100 ml @ 200 mls/ hr IV Q6H MEI Rx#: [id number] Output: Urine (ml) 400 Toilet 400 Other: Number of Voids Toilet 1 2 Result Diagrams: 09/07/18 09:58 09/07/18 13:20 - Physical Exam Constitutional: no apparent distress Eyes: PERRL, anicteric sclera Ears, Nose, Mouth, Throat: moist mucous membranes Cardiovascular: regular rate and rhythm, no murmurs Respiratory: clear to auscultate bilat, no crackles, no wheezes Gastrointestinal: normoactive bowel sounds Skin: other (right wrist puncture site is healing nicely no sign of infection) - . Pending Discharge Within 24 Hours: No Pending Discharge Within 48 Hours: No ICD10 Worksheet Patient Problems: Problems Problem Status Onset Leg weakness, bilateral Acute Cholecystitis Acute Weakness Acute Syncope Acute Cellulitis Acute Coronary artery disease Acute - ICD10 Problem Qualifiers (1) Coronary artery disease
--- NOTE | 2018-09-09 10:14 | SOAPPROG ---
SOAP Progress Note Assessment/Plan: Assessment: Preop CABG Sx severe CAD with preserved LV systolic fx - Preop imaging completed. No prohibitive surgical risks. HR and BP well controlled. No sx sugg of anginal equivalent. Dilated asc aorta with mild and mild to mod AI - No intervention planned unless intraop SANCHEZ suggestive of more sig AI. Left hand cellulitis from dog bite - No evidence abscess or joint involvement. Good response to Unasyn. Ortho and ID following. Plan: CABG +/- AVR tomorrow by Dr Bustos. Per ID, Unasyn sufficient surgical prophylaxis. 09/09/18 10:08 Subjective: Feels well. No acute concerns. Objective: Vital Signs Temp Pulse Resp BP Pulse Ox 36.8 C 67 18 93/57 L 93 09/09/18 07:58 09/09/18 07:58 09/09/18 07:58 09/09/18 07:58 09/09/18 07:58 Laboratory Results 09/07/18 13:20 09/08/18 09/09/18 09/10/18 05:59 05:59 05:59 Intake Total 1050 930 Output Total 400 Balance 650 930 PT 13.6 SEC (12.0-15.0) 09/07/18 13:20 INR 1.08 (0.83-1.16) 09/07/18 13:20 Physical Exam - Physical Exam General Appearance: alert, no apparent distress Respiratory: lungs clear Cardiac/Chest: regular rate, rhythm Abdomen: non-tender, soft Skin: warm/dry Extremities: swelling (base left index finger w faint residual patch of erythema ), other (no visible leg edema) ICD10 Worksheet Patient Problems: Problems Problem Status Onset Cellulitis Acute Coronary artery disease Acute Syncope Acute Cholecystitis Acute Leg weakness, bilateral Acute Weakness Acute
[2018-09-09] MEDS ORDERED: TETANUS, DIPHTHERIA TOX (7YR+) 0.5 ML INJ IM ONE (10:48)
--- NOTE | 2018-09-09 15:54 | HOSPPROG ---
Hospitalist Progress Note Assessment/Plan: * Unstable angina presenting as syncope and neck pain * CAD - critical 3 vessel dz -CABG tomorrow * Left hand cellulitis due to dog bite -IV Unasyn -okay to proceed with CT surgery * ARF due to dehydration -resolved with IVF * HTN -lisinopril To CT surgery tomorrow with Dr. Bustos. d/w Maribel Feldman - Hospitalist medicine to sign off and Dr Bustos to assume attending responsibilities. Please re- consult if our service is needed. Thanks! Subjective: no new complaints, hand continues to improve Objective: Vital Signs Temp Pulse Resp BP Pulse Ox 36.8 C 76 18 113/62 94 09/09/18 12:00 09/09/18 12:00 09/09/18 12:00 09/09/18 12:00 09/09/18 12:00 Laboratory Results 09/07/18 13:20 09/08/18 09/09/18 09/10/18 05:59 05:59 05:59 Intake Total 1050 930 Output Total 400 Balance 650 930 PT 13.6 SEC (12.0-15.0) 09/07/18 13:20 INR 1.08 (0.83-1.16) 09/07/18 13:20 d/w Maribel Feldman PA as above tele reviewed - NSR - Physical Exam Constitutional: no apparent distress, appears nourished, not in pain Cardiovascular: regular rate and rhythym, no murmur, rub, or gallop Respiratory: no respiratory distress, no rales or rhonchi, clear to auscultation Gastrointestinal: normoactive bowel sounds, soft, non-tender abdomen, no palpable masses Skin: erythema (improved), other (swelling better, increased ROM) Neurologic: AAOx3, sensation intact bilaterally Psychiatric: interacting appropriately, not anxious, not encephalopathic, thought process linear ICD10 Worksheet Patient Problems: Problems Problem Status Onset Leg weakness, bilateral Acute Cholecystitis Acute Weakness Acute Syncope Acute Cellulitis Acute Coronary artery disease Acute
--- NOTE | 2018-09-09 17:02 | PCMIDPN ---
Assessment/Plan: Assessment: Left hand cellulitis following dog bite. Continues to improve on IV Unasyn. Patient will be going to the operating room for coronary artery bypass grafting tomorrow morning. Plan will be to continue the Unasyn through this procedure. Given time on treatment I feel that the procedure should go ahead especially noting the severity of coronary artery disease. Plan: 1. Continue IV Unasyn at present dosing. 2. Follow appearance of left hand infection. 3. Follow up on surgical results. 09/08/18 10:51 09/09/18 16:59 Subjective: Patient is doing fairly well. He is looking forward to his surgery tomorrow. Notes that his left hand continues to show improvement. The redness has retracted to around his 2nd MCP and digit. He still is having some pain with flexion of that digit although passive range of motion of the MCP does not elicit tenderness. Objective: Unasyn # 3 Vital Signs Temp Pulse Resp BP Pulse Ox 36.8 C 76 18 127/71 H 95 09/09/18 16:00 09/09/18 16:00 09/09/18 16:00 09/09/18 16:00 09/09/18 16:00 Laboratory Results 09/07/18 13:20 09/08/18 09/09/18 09/10/18 05:59 05:59 05:59 Intake Total 1050 930 Output Total 400 Balance 650 930 - Physical Exam General Appearance: WD/WN, alert, no apparent distress, non-toxic Respiratory: lungs clear, normal breath sounds, No respiratory distress Cardiac/Chest: regular rate, rhythm, No tachycardia Skin: normal color, warm/dry, No rash Neuro/Psych: alert, normal mood/affect, oriented x 3 ICD10 Worksheet Patient Problems: Problems Problem Status Onset Cellulitis Acute Coronary artery disease Acute Syncope Acute Cholecystitis Acute Leg weakness, bilateral Acute Weakness Acute
[2018-09-09] MEDS: SENNOSIDES/DOCUSATE SODIUM TAB PO SCH (20:19)
[2018-09-09] MEDS ORDERED: CHLORHEXIDINE GLUC HIBICLENS 118 ML BTL TP SCH (21:00)
[2018-09-09] MEDS: MUPIROCIN 2% 22 GM OINT NS SCH (21:59)
[2018-09-10] MEDS: AMPICILLIN/SULBACTAM 3 GM in NS 100 ML IV SCH ×4 (03:54→20:03)
[2018-09-10] MEDS ORDERED: niCARdipine/NACL 200 ML IV ONE (06:00)
[2018-09-10] MEDS ORDERED: MANNITOL 25% 12.5 GM/50 ML VIAL IVP ONE (06:00)
[2018-09-10] MEDS ORDERED: VERAPAMIL 5 MG, NITROGLYCERIN 2.5 MG, HEPARIN 500 UNIT, SODIUM BICARBONATE 0.2 MEQ in L... MISC ONE (06:00)
[2018-09-10] MEDS ORDERED: AMINOCAPROIC ACID 5 GM/20 ML VIAL IV ONE (06:00)
[2018-09-10] MEDS ORDERED: NOREPINEPHRINE BITARTRATE 16 MG in NS 250 ML IV ONE (06:00)
[2018-09-10] MEDS ORDERED: INSULIN REGULAR HUMAN 100 UNIT in NS 100 ML IV ONE (06:00)
[2018-09-10] MEDS ORDERED: CITRATE DEXTROSE SOLN 500 ML BAG MISC ONE (06:00)
[2018-09-10] MEDS ORDERED: PHENYLEPHRINE HCL 50 MG in NS 250 ML IV ONE (06:00)
[2018-09-10] MEDS ORDERED: CARDIOPLEGIC SOLUTION 1,052.8 ML PF ONE (06:00)
[2018-09-10] MEDS ORDERED: CALCIUM CHLORIDE 1 GM/10 ML INJ ONE ×2 (06:23→06:25)
[2018-09-10] MEDS ORDERED: AMINOCAPROIC ACID 5 GM/20 ML VIAL ONE ×2 (06:23→06:25)
[2018-09-10] MEDS ORDERED: PROTAMINE SULFATE 50 MG/5 ML VIAL IVP ONE (06:23)
[2018-09-10] MEDS ORDERED: MILRINONE/DEXTROSE/100 ML BAG IV ONE (06:23)
[2018-09-10] MEDS ORDERED: niCARdipine/NACL/200 ML BAG IV ONE (06:24)
[2018-09-10] MEDS ORDERED: NITROGLYCERIN/D5W 50 MG/250 ML BOTTLE IV ONE (06:24)
[2018-09-10] MEDS ORDERED: HEPARIN 10,000 UNIT/10 ML MDV (1,000 UNIT/ML) ONE ×2 (06:24→06:25)
[2018-09-10] MEDS ORDERED: ADENOSINE 6 MG/2 ML VIAL ONE (06:24)
[2018-09-10] MEDS ORDERED: ceFAZolin 1 GM VIAL ONE (06:24)
[2018-09-10] MEDS ORDERED: DOPamine/DEXTROSE 400 MG/250 ML BAG IV ONE (06:24)
[2018-09-10] MEDS ORDERED: AMIODARONE HCL 150 MG/3 ML VIAL ONE ×2 (06:24→06:26)
[2018-09-10] MEDS ORDERED: NA BICARBONATE 50 MEQ/50 ML VIAL ONE (06:24)
[2018-09-10] MEDS ORDERED: ALBUMIN 5% 250 ML BOTTLE IV ONE (06:25)
[2018-09-10] MEDS ORDERED: LIDOCAINE 2% 100 MG/5 ML SYR ONE ×2 (06:25→07:20)
[2018-09-10] MEDS ORDERED: CITRATE DEXTROSE SOLN 500 ML BAG ONE (06:25)
[2018-09-10] MEDS ORDERED: SODIUM BICARBONATE 50 MEQ/50 ML SYR ONE (06:25)
[2018-09-10] MEDS ORDERED: MAGNESIUM SULFATE 1 GM/2 ML VIAL ONE (06:26)
[2018-09-10] MEDS ORDERED: LR 1,000 ML IV ONE (06:26)
[2018-09-10] MEDS ORDERED: methylPREDNISolone SOD SUCC 1 GM/8 ML VIAL ONE (06:26)
[2018-09-10] MEDS ORDERED: MINERAL OIL 10 ML VIAL ONE (06:53)
[2018-09-10] MEDS ORDERED: VERAPAMIL 5 MG/2 ML VIAL ONE (06:53)
[2018-09-10] MEDS ORDERED: PAPAVERINE HCL 60 MG/2 ML SDV ONE (06:53)
--- NOTE | 2018-09-10 06:58 | PDHPUP ---
History & Physical Update H&P update statement: This history and physical update is based on an assessment of the patient which was completed after admission or registration (within 24 hours), but prior to the surgery/procedure. H&P update: H&P reviewed & patient examined (comfortable, no angina, labs ok)
[2018-09-10] MEDS ORDERED: MIDAZOLAM 2 MG/2 ML VIAL IVP ONE (07:00)
[2018-09-10] MEDS ORDERED: CEFAZOLIN 2 GM/DEXTROSE/100 ML BAG IV ONE (07:00)
[2018-09-10] MEDS ORDERED: DEXMEDETOMIDINE HCL 400 MCG in NS 100 ML IV SCH (07:00)
--- NOTE | 2018-09-10 07:06 | PDANEPAE ---
ANE History of Present Illness CAD s/f CABG ANE Past Medical History - Cardiovascular History Hx Hypertension: Yes Hx Arrhythmias: Yes Hx Chest Pain: Yes Hx Coronary Artery / Peripheral Vascular Disease: Yes Cardiovascular History Comment: 3v CAD. PVC's. Mild AR - Pulmonary History Hx Oxygen in Use at Home: No Hx Sleep Apnea: No Sleep Apnea Screening Result - Last Documented: Positive - Endocrine History Hx Diabetes: No - GI History GERD: moderate - Chronic Pain History Chronic Pain: No ANE Review of Systems Review of Systems: - Exercise capacity Exercise capacity: >=4 METS ANE Patient History - Allergies Allergies/Adverse Reactions: No Known Allergies Allergy (Verified 09/06/18 13:42) - Home Medications Home medications: home medication list seen and reviewed Home Medications: Lisinopril [Zestril 20 mg (*)] 20 mg PO DAILY 10/30/15 [Last Taken 09/06/18] - NPO status NPO Status: no food or drink >8 hours NPO Since - Liquids (Date): 09/10/18 NPO Since - Liquids (Time): 00:00 NPO Since - Solids (Date): 09/10/18 NPO Since - Solids (Time): 00:00 - Anes Hx Anes Hx: no prior problems - Smoking Hx Smoking Status: Never smoked - Alcohol Use Alcohol Use: None - Family Anes Hx Family Anes Hx: none ANE Labs/Vital Signs - Labs Result Diagrams: 09/10/18 03:05 09/10/18 03:05 - Vital Signs Blood Pressure: 100/62 Heart Rate: 66 Respiratory Rate: 17 O2 Sat (%): 94 Height: 177.8 cm Weight: 102.784 kg ANE Physical Exam - Airway Neck exam: FROM Mallampati Score: Class 2 Mouth exam: normal dental/mouth exam - Pulmonary Pulmonary: no respiratory distress - Cardiovascular Cardiovascular: regular rate and rhythym - ASA Status ASA Status: III ANE Anesthesia Plan Anesthesia Plan: general endotracheal anesthesia Lines/Monitors: arterial line, central line, SANCHEZ
[2018-09-10] MEDS: MUPIROCIN 2% 22 GM OINT NS SCH ×2 (07:07→20:05)
[2018-09-10] MEDS ORDERED: REMIFENTANIL HCL 1 MG VIAL ONE ×2 (07:14→09:29)
[2018-09-10] MEDS ORDERED: MIDAZOLAM 2 MG/2 ML VIAL ONE (07:15)
[2018-09-10] MEDS ORDERED: PROPOFOL/EMULSION 500 MG/50 ML BOTTLE IV ONE ×2 (07:15→09:29)
[2018-09-10] MEDS ORDERED: fentaNYL 250 MCG/5 ML INJ ONE (07:15)
[2018-09-10] MEDS ORDERED: ePHEDrine SULFATE 25 MG/5 ML SYR ONE ×3 (07:20→10:30)
[2018-09-10] MEDS ORDERED: ONDANSETRON 4 MG/2 ML VIAL ONE (07:20)
[2018-09-10] MEDS ORDERED: PHENYLEPHRINE HCL 100 MCG/ML SYR ONE ×2 (07:20→08:42)
[2018-09-10] MEDS ORDERED: DEXAMETHASONE 4 MG/ML VIAL ONE ×2 (07:20)
[2018-09-10] MEDS ORDERED: SUGAMMADEX SODIUM 200 MG/2 ML VIAL IVP ONE (11:13)
[2018-09-10] MEDS ORDERED: POLYETHYLENE GLYCOL 3350 17 GM PKT PO PRN (11:42)
[2018-09-10] MEDS ORDERED: SODIUM CL NASAL 45 ML BTL EACHNARE PRN (11:42)
[2018-09-10] MEDS ORDERED: LACTULOSE 20 GM/30 ML UDCUP PO PRN (11:42)
[2018-09-10] MEDS ORDERED: POTASSIUM Cl (KCl) 50 ML IV PRN (11:42)
[2018-09-10] MEDS ORDERED: PANTOPRAZOLE SODIUM 40 MG VIAL IVP ONE (11:42)
[2018-09-10] MEDS ORDERED: MAGNESIUM HYDROXIDE 30 ML UDCUP PO PRN (11:42)
[2018-09-10] MEDS ORDERED: niCARdipine/NACL 200 ML IV PRN (11:42)
[2018-09-10] MEDS ORDERED: METOCLOPRAMIDE 10 MG/2 ML VIAL IVP PRN (11:42)
[2018-09-10] MEDS ORDERED: CEPACOL LOZENGE PO PRN (11:42)
[2018-09-10] MEDS ORDERED: MEPERIDINE 25 MG/0.5 ML AMP IVP PRN (11:42)
[2018-09-10] MEDS ORDERED: fentaNYL 100 MCG/2 ML INJ IVP PRN (11:42)
[2018-09-10] MEDS ORDERED: D50W 25 GM/50 ML SYR IVP PRN (11:42)
[2018-09-10] MEDS ORDERED: BISACODYL 10 MG SUPP PR PRN (11:42)
[2018-09-10] MEDS ORDERED: NS 1,000 ML IV SCH (11:45)
[2018-09-10] MEDS ORDERED: INSULIN REGULAR HUMAN 100 UNIT in NS 100 ML IV SCH (12:00)
[2018-09-10] MEDS: ALBUMIN 5% 250 ML IV PRN ×2 (12:30→16:34)
--- NOTE | 2018-09-10 13:14 | GOP ---
[f rep st] OPERATIVE REPORT DATE OF OPERATION: 09/10/2018 SURGEON: Liam Bustos DO OBSTETRICS SPECIALIST: Maribel Feldman, ROYA ANESTHESIOLOGIST: Tomasz Walters MD PREOPERATIVE DIAGNOSIS: 1. Unstable angina pectoris with severe 3-vessel disease. 2. Mild aortic insufficiency with mild aortic sclerosis. 3. Obesity. POSTOPERATIVE DIAGNOSIS: 1. Unstable angina pectoris with severe 3-vessel disease. 2. Mild aortic insufficiency with mild aortic sclerosis. 3. Obesity. PROCEDURE PERFORMED: 1. Artery bypass grafting x4 with left internal mammary artery to the left anterior descending, saph enous vein graft to the diagonal, saphenous vein graft to the lateral circumflex, and saphenous vein graft to the posterior descending artery. 2. Endoscopic vein harvest. 3. Atrial clip to left atrial appendage. FINDINGS: DESCRIPTION OF PROCEDURE: Under general anesthetic, the patient was prepped and draped in sterile cl assical manner. Sternotomy was performed. Mammary was harvested. Patient was heparinized, cannulat ed, and bypass was begun. A cardioplegic arrest was obtained with antegrade cardioplegia, retrograde cardioplegia, topical hypothermia, and systemic cooling. It should be noted. Intraoperative SANCHEZ re vealed [id number] aortic insufficiency with no significant stenosis. Ventricular function was preserved. All distals and proximals were performed with a cross-clamp on. The LAD was a 2.5 mm dif fusely diseased vessel grafted in the distal third. Diagonal was a 2.4 mm good quality vessel. The OM was a 1.6 mm good quality vessel, and the PDA was a 2.4 mm good quality vessel. The cross-clamp w as removed with suction on the ascending aortic vent. Spontaneous cardiac activity was noted to resu me. Patient was rewarmed, weaned from bypass. Heparin was reversed with protamine. Cannula was rem amara and oversewn. Two ventricular pacing wires, 1 left pleural, 1 mediastinal drain were placed. T he thymic fat and pericardium were closed. Chest was closed in standard fashion. Patient was return ed to ICU in stable condition. /[id number]/MODL
[2018-09-10] MEDS: LISINOPRIL 20 MG TAB PO SCH (13:27)
[2018-09-10] MEDS: SENNOSIDES/DOCUSATE SODIUM TAB PO SCH (13:29)
[2018-09-10] MEDS ORDERED: KETOROLAC 30 MG/1 ML SDV IVP ONE (13:30)
--- NOTE | 2018-09-10 14:02 | CPEKG ---
Test Reason : OPEN Blood Pressure : / mmHG Vent. Rate : 068 BPM Atrial Rate : 067 BPM P-R Int : 177 ms QRS Dur : 109 ms QT Int : 433 ms P-R-T Axes : 028 076 068 degrees QTc Int : 461 ms Sinus rhythm Low voltage, extremity leads Previous PVCs are no longer appreciated Confirmed by Diego Cardenas ([id number]) on 09/10/2018 2:02:27 PM Referred By: Chente Jackson Confirmed By:Diego Cardenas
--- NOTE | 2018-09-10 16:06 | PCMIDPN ---
Assessment/Plan: Assessment: Left hand cellulitis following dog bite. Continues to improve on IV Unasyn. Patient is status post bypass surgery earlier today. Plan will be to continue Unasyn going forward. Plan: 1. Continue IV Unasyn at present dosing. 2. Follow appearance of left hand infection. 3. Follow up on surgical results. Subjective: Patient seen in ICU room following returned from the operating room. He is still sedated and groggy from surgery. Objective: Unasyn # 4 Vital Signs Temp Pulse Resp BP Pulse Ox 35.9 C L 64 14 110/44 L 4 L 09/10/18 12:00 09/10/18 14:00 09/10/18 14:00 09/10/18 14:00 09/10/18 14:00 Laboratory Results 09/10/18 03:05 09/10/18 03:05 09/09/18 09/10/18 09/11/18 05:59 05:59 05:59 Intake Total 930 1740 550 Output Total 1350 825 Balance 930 390 -275 - Physical Exam General Appearance: WD/WN, alert, no apparent distress, non-toxic Respiratory: lungs clear, normal breath sounds, No respiratory distress Extremities: non-tender, erythema (Mild left hand), No normal inspection Skin: normal color, warm/dry, No rash ICD10 Worksheet Patient Problems: Problems Problem Status Onset Acute blood loss anemia Acute Aortic insufficiency Acute Cellulitis Acute Coronary artery disease Acute Mild ascending aorta dilatation Acute S/P CABG x 4 Acute ~09/10/18 Syncope Acute
--- NOTE | 2018-09-10 18:21 | POSTANESTH ---
Post Anesthetic Evaluation Cardiovascular Status: Normal, Stable, Similar to Pre-Op Cond Respiratory Status: Normal, Stable, Tx Decrease in SpO2 Level of Consciousness/Mental Status: Can Participate in Eval Pain Control: Adequate, Prn Tx Ordered Nausea/Vomiting Control: Adequate, Prn Tx Ordered Complications Possibly Related to Anesthesia: None Noted
[2018-09-10] MEDS ORDERED: ALBUMIN 5% 500 ML BOTTLE IV ONE (18:32)
[2018-09-10] MEDS ORDERED: ALBUMIN 5% 500 ML IV ONE (19:00)
[2018-09-10] MEDS: HYDROCODONE/APAP 5/325 TAB PO PRN ×2 (20:07→23:58)
[2018-09-11] MEDS: AMPICILLIN/SULBACTAM 3 GM in NS 100 ML IV SCH ×4 (03:04→19:43)
[2018-09-11 05:17] LABS: PLATELET COUNT 112 10^3/uL (150-400)
[2018-09-11] MEDS: HYDROCODONE/APAP 5/325 TAB PO PRN ×3 (05:20→19:41)
[2018-09-11] MEDS: HEPARIN 5,000 UNIT/0.5 ML INJ SC SCH ×3 (05:59→22:58)
[2018-09-11] MEDS ORDERED: ALBUMIN 5% 250 ML BOTTLE IV ONE (06:43)
[2018-09-11] MEDS ORDERED: ALBUMIN 5% 250 ML IV ONE (07:00)
--- NOTE | 2018-09-11 07:08 | SOAPPROG ---
SOAP Progress Note Assessment/Plan: POD#1 s/p CABGx4 (ANDERSON-LAD, SVG-DIAG, SVG-CIRC, SVG-PDA) w AtriClip KERLINE Unstable angina w severe 3v CAD and preserved EF - s/p CABGx4. Routine pathway. Secondary prevention w ASA, BB, and statin when appropriate. Acute expected blood loss anemia w thrombocytopenia - stable wo need of transfusions. Monitor. Mild-moderate AI - Seen on pre-op TTE and investigated again w intraop SANCHEZ. No significant stenosis or intervention. Acute pulmonary insufficiency - extubated wo difficulty. Non-smoker. Left hand cellulitis 2/2 canine bite w resolved ascending lymphadenitis - No evidence abscess or joint involvement. Antibiotic therapy IV Unasyn per ID. Acute Kidney Injury (resolved) - on admission Cr 1.7 and secondary to dehydration. Resolved w IVF. Home medication ACEI not appropriate at this time. DVT ppx - heparin sq Dispo: Chest tubes to bulbs Wrap and cap V Wires Wean dopa PTOT to evaluate Will d/w Akash re: transfer to PCU Subjective: BP labile Objective: Vital Signs Temp Pulse Resp BP Pulse Ox 36.6 C 82 15 105/46 L 94 09/11/18 00:00 09/11/18 06:00 09/11/18 06:00 09/11/18 06:00 09/11/18 06:00 Laboratory Results 09/11/18 05:00 09/11/18 05:00 09/10/18 09/11/18 09/12/18 05:59 05:59 05:59 Intake Total 1740 3103 Output Total 1350 2320 Balance 390 783 PT 13.6 SEC (12.0-15.0) 09/07/18 13:20 INR 1.08 (0.83-1.16) 09/07/18 13:20 General Appearance: alert, mild distress EENT: No scleral icterus (R), No scleral icterus (L) Respiratory: chest mildly tender Cardiac/Chest: regular rate, rhythm Abdomen: non-tender, soft, No distended Skin: pallor Extremities: pedal edema Neuro/Psych: no motor/sensory deficits, oriented x 3 ICD10 Worksheet Patient Problems: Problems Problem Status Onset Acute blood loss anemia Acute Aortic insufficiency Acute Cellulitis Acute Coronary artery disease Acute Mild ascending aorta dilatation Acute S/P CABG x 4 Acute ~09/10/18 Syncope Acute
--- NOTE | 2018-09-11 09:54 | PDCONSULT ---
Bronze Plater Note: ASSESSMENT 72 yo male with severe CAD s/p 4 vessel cabg 09/09/17 and atriclip KERLINE # CAD s/p 4 vessel cabg 09/09/18. # post operative respiratory failure. # shock, suspect post operative vasoplegia # cellulitis, L hand. due to dog bite, treated with unasyn per ID # obesity # KRISTI, suspected. PLAN # continue Dopamine titrating MAP >65. # asa 81 # warfarin # unasyn for cellulitis # Feeding - cardiac diet # Analgesia APAP, fentanyl # Sedation none # Thromboprophylaxis - SQ hep # Head of bed elevated # Ulcer prophylaxis - PPI # Glucose SSI # Skin no skin breakdown # Delirium - delirium precautions # dispo remain in ICU until off pressors ABX unasyn EVENTS 09/10/18 4vCABG, KERLINE CX Data IMAGING Reviewed Chief complaint Neck pain. HPI Diego is a very pleasant 72-year-old male who is relatively healthy who presented with neck pain a syncopal episode while at work. He has had 3 prior episodes over the years. After being hospitalized he was admitted and underwent a transthoracic echocardiogram as well as diagnostic left heart catheterization was complete showed complete occlusion of the right coronary artery as well as diffuse distal vessel disease and left main. He also had moderate aortic insufficiency with mild aortic sclerosis and minimal gradient. Patient also had a recent dog bite on his hand and is maintained on antibiotics per ID. His postoperative course has been complicated by persistent shock/vaso plegia and pain. He states hand pain is improving denies fevers, chills, nausea vomiting, worsening shortness of breath. Allergies No known drug allergies Meds Medication reconciliation has been performed. See EMR for details Past medical history Hypertension, GERD, migraines Social history Remote history of alcohol dependence, no smoking, lives with in [facility] Family history Coronary disease Review of systems A comprehensive 10 point review of systems was obtained is negative except as per HPI Exam Vitals-afebrile, sinus rhythm 91, blood pressure 100/40, respiratory rate 20 to 94% on 2 L GEN: Resting in chair, pill over chest NEURO: A&Ox3, CN 2-12 GI HEENT: PERRL, EOMI, MMM, OP clear NECK: Right IJ in place, no swelling CHEST normal shape, no pes excavatum CVS: rrr no m/r/g PULM: CTA B, no wheezes/rales/rhonchi ABD: soft, NT, ND, NABS EXT: no swelling, no cyanosis, full ROM SKIN: warm, dry, intact, no rash PSYCH CAM negative, appropriate affect Patient is critical ill due to life threatening organ dysfunction and is at high risk for decompensation and . Total critical care time, excluding procedures: 79 min
[2018-09-11] MEDS: ASPIRIN 81 MG CHEWABLE TAB PO SCH (10:32)
[2018-09-11] MEDS: PANTOPRAZOLE SODIUM 40 MG TAB PO SCH (10:32)
[2018-09-11] MEDS: MUPIROCIN 2% 22 GM OINT NS SCH ×2 (10:33→19:48)
--- NOTE | 2018-09-11 10:52 | PCMIDPN ---
Assessment/Plan: 1. Left hand cellulitis after dog bite: MRI on admission without evidence of underlying abscess. Much improvement with Unasyn. Still has some pinkish erythema and swelling hand dorsum at the base of 2nd and 3rd digits. No evidence of lymphangitic streaking whatsoever, and cellulitic component has practically resolved. Able to make a fist without difficulty. Hopefully will only need Unasyn for another few days or so. Status post Tdap during this hospitalization. 09/11/18 10:53 Subjective: Stable, sitting up making conversation with me. No complaints except for feeling groggy. Nurse reports that she is trying to get him off of dopamine, but blood pressure is not allowing for that presently. Arterial line placed in infected extremity. Objective: Unasyn 3 g IV q.6 hours day 5 No fevers Status post Tdap Vital Signs Temp Pulse Resp BP Pulse Ox 36.8 C 81 18 100/44 L 95 09/11/18 07:00 09/11/18 07:00 09/11/18 07:00 09/11/18 07:00 09/11/18 07:00 Laboratory Results 09/11/18 05:00 09/11/18 05:00 09/10/18 09/11/18 09/12/18 05:59 05:59 05:59 Intake Total 1740 3103 Output Total 1350 2320 Balance 390 783 No microbiology - Physical Exam General Appearance: other (Alert, sitting up in chair, no apparent distress) EENT: No scleral icterus, No thrush Cardiac/Chest: regular rate, rhythm, other (Sternal incision glued, appropriate tram-incisional erythema, no significant tenderness and no drainage.) Extremities: other (Left hand:Volar aspect with arterial line in place radial artery, dorsum with some minimal puffiness, some residual pinkish discoloration that blanches particularly at the base of 2nd and 3rd fingers, no tenderness or underlying fluctuance at all.) Skin: No rash ICD10 Worksheet Patient Problems: Problems Problem Status Onset Acute blood loss anemia Acute Aortic insufficiency Acute Cellulitis Acute Coronary artery disease Acute Mild ascending aorta dilatation Acute S/P CABG x 4 Acute ~09/10/18 Syncope Acute
--- NOTE | 2018-09-11 15:37 | ASMTCMCOM ---
CM Note CM Note Notes: Pt care discussed in rounds. Pt had CABGx4 yesterday. At this time PT/OT rec: inpt rehab. CM to follow. Plan: Inpt rehab Date Signed: 09/11/2018 03:36 PM Electronically Signed By:MARILYN Jimenes
[2018-09-12] MEDS: AMPICILLIN/SULBACTAM 3 GM in NS 100 ML IV SCH ×4 (03:53→20:36)
[2018-09-12] MEDS ORDERED: AMIODARONE 6HR INFSN (ORDER 2/3) PREMIX IV ONE (05:00)
[2018-09-12] MEDS ORDERED: AMIODARONE LOAD DOSE(ORDER 1/3) PREMIX IV ONE (05:00)
[2018-09-12] MEDS ORDERED: ALBUMIN 5% 250 ML BOTTLE IV ONE ×2 (05:04→07:58)
[2018-09-12] MEDS: HYDROCODONE/APAP 5/325 TAB PO PRN (05:17)
[2018-09-12] MEDS: HEPARIN 5,000 UNIT/0.5 ML INJ SC SCH ×3 (05:29→20:35)
[2018-09-12] MEDS ORDERED: ALBUMIN 5% 250 ML IV ONE ×2 (05:30→08:30)
--- NOTE | 2018-09-12 06:51 | SOAPPROG ---
SOAP Progress Note Assessment/Plan: POD #2: urgent CABGx4 (ANDERSON-LAD, SVG-DIAG, SVG-CIRC, SVG-PDA), EVH L, AtriClip KERLINE Unstable angina w severe 3-vessel CAD and preserved EF - s/p CABGx4. Secondary prevention w ASA, BB, and statin when appropriate. Acute post-op blood loss anemia w thrombocytopenia - stable w/o need of transfusions. Monitor. Post-op atrial fibrillation with RVR - continue amiodarone gtt. Beta-susi when appropriate. CHADS2-VASC 3. Consider thromboprophylaxis with Eliquis if persistent. Mild-moderate AI - AVR deferred. Mgmt as per cardiology. Left hand cellulitis 2/2 canine bite w resolved ascending lymphadenitis - no evidence abscess or joint involvement. Antibiotic therapy IV Unasyn per ID. Acute Kidney Injury - secondary to dehydration. Pt continues to show sxs of intravascular depletion. Will give 1L of NS. Wean dopamine as tolerated for MAPs 65. DVT ppx - heparin/SCDs. Disposition - ICU care until dopamine weaned off. Subjective: Pt c/o neck and back pain. Denies SOB. Objective: Vital Signs Temp Pulse Resp BP Pulse Ox 37.3 C 132 H 16 80/50 L 91 L 09/12/18 06:00 09/12/18 06:00 09/12/18 06:00 09/12/18 06:00 09/12/18 06:00 Laboratory Results 09/12/18 04:15 09/12/18 04:15 09/11/18 09/12/18 09/13/18 05:59 05:59 05:59 Intake Total 3103 3603 Output Total 2320 1085 Balance 783 2518 PT 13.6 SEC (12.0-15.0) 09/07/18 13:20 INR 1.08 (0.83-1.16) 09/07/18 13:20 Physical Exam - Physical Exam General Appearance: WD/WN, alert, no apparent distress EENT: No scleral icterus (R), No scleral icterus (L) Neck: normal inspection Respiratory: No respiratory distress Cardiac/Chest: irregularly irregular Abdomen: non-tender, soft, No distended Skin: normal color, warm/dry Extremities: pedal edema Neuro/Psych: no motor/sensory deficits, alert, normal mood/affect, oriented x 3 ICD10 Worksheet Patient Problems: Problems Problem Status Onset Acute blood loss anemia Acute Aortic insufficiency Acute Cellulitis Acute Coronary artery disease Acute Mild ascending aorta dilatation Acute S/P CABG x 4 Acute ~09/10/18 Syncope Acute
[2018-09-12] MEDS ORDERED: AMIODARONE HCL 100 ML IV ONE (07:16)
[2018-09-12] MEDS ORDERED: KETOROLAC 30 MG/1 ML SDV IVP ONE (07:18)
[2018-09-12] MEDS ORDERED: NS 1,000 ML IV SCH (07:30)
[2018-09-12] MEDS: SENNOSIDES/DOCUSATE SODIUM TAB PO SCH ×2 (09:20→20:35)
[2018-09-12] MEDS: ASPIRIN 81 MG CHEWABLE TAB PO SCH (09:20)
[2018-09-12] MEDS: MUPIROCIN 2% 22 GM OINT NS SCH (09:20)
[2018-09-12] MEDS: PANTOPRAZOLE SODIUM 40 MG TAB PO SCH (09:20)
--- NOTE | 2018-09-12 10:30 | PDINTPN ---
Managing Member Progress Note Assessment/Plan: ASSESSMENT 72 yo male with severe CAD s/p 4 vessel cabg 09/09/17 and atriclip KERLINE whose post op course has been complicated by shock # CAD s/p 4 vessel cabg 09/09/18. # post operative respiratory failure, improving # shock, suspect post operative vasoplegia. effusion and tamponade physiology less likely given CVP tracing and wide pulse pressure on systemic BP # cellulitis, L hand. due to dog bite, treated with unasyn per ID # obesity # KRISTI, suspected. PLAN # continue Dopamine titrating MAP >65. # TTE now # judicious fluid # asa 81 # warfarin # unasyn for cellulitis # Feeding - cardiac diet # Analgesia APAP, dilaudid # Sedation none # Thromboprophylaxis - SQ hep # Head of bed elevated # Ulcer prophylaxis - PPI # Glucose SSI # Skin no skin breakdown # Delirium - delirium precautions # dispo remain in ICU until off pressors ABX unasyn EVENTS 09/10/18 4vCABG, KERLINE CX Data IMAGING I reviewed interpreted patient's radiographic images well as formal radiology reads 09/12/2018 CXR no new focal infiltrate or pneumothorax. Support devices in appropriate position. Bilateral lower lobe linear opacities consistent with atelectasis. Subjective: Afib w rvr overnight requiring amio, converted back to NSR this AM, still in shock on DA, TTE pending this AM. no fevers, chills, nausea, vomiting, swelling Objective: Vital Signs Temp Pulse Resp BP Pulse Ox 37.2 C 71 15 90/40 L 94 09/12/18 08:00 09/12/18 10:00 09/12/18 10:00 09/12/18 10:00 09/12/18 10:00 Laboratory Results 09/12/18 04:15 09/12/18 04:15 09/11/18 09/12/18 09/13/18 05:59 05:59 05:59 Intake Total 3103 3603 Output Total 2320 1085 80 Balance 783 2518 -80 PT 13.6 SEC (12.0-15.0) 09/07/18 13:20 INR 1.08 (0.83-1.16) 09/07/18 13:20 Physical Exam - Physical Exam General Appearance: alert, no apparent distress EENT: PERRL/EOMI, normal ENT inspection, other (Right IJ in place) Respiratory: chest non-tender, lungs clear Cardiac/Chest: other (Pericardial rub, normal sinus rhythm. Trace lower extremity edema. Sternotomy site clean dry and intact) Skin: normal color, warm/dry, No cyanosis Extremities: normal range of motion, non-tender Neuro/Psych: no motor/sensory deficits, alert, normal mood/affect ICD10 Worksheet Patient Problems: Problems Problem Status Onset Acute blood loss anemia Acute Aortic insufficiency Acute Cellulitis Acute Coronary artery disease Acute Mild ascending aorta dilatation Acute S/P CABG x 4 Acute ~09/10/18 Syncope Acute
[2018-09-12] MEDS ORDERED: AMIODARONE 18HR INFSN (ORDER 3/3) IV ONE (11:00)
--- NOTE | 2018-09-12 13:10 | ECHO ---
[email or web address] [id number] Main: [phone] Echocardiography Examination Transthoracic Name: JAIRO STEVEN MR#: [id number] Study Date: 09/12/2018 Study Time: 09:55 AM Date of : 1945 Age: 72 year(s) Height: 177.8 cm (70 in.) Weight: 109.77 kg (242 lb.) BSA: 2.26 m2 Gender: Male Examination: Limited Echo Contrast: Image Quality: Adequate Rhythm: Heart Rate: BP: / Indication: Rule out effusion Procedure Staff Referring Physician: Web Marketing Intern: Josette Kent [facility] Reading Physician: Ran Vasquez MD Requesting Provider: Indication: Rule out effusion Conclusions Overall Conclusions: trivial pericardial effusion Normal EF Findings Pericardium: Trivial pericardial effusion. Exam Details Procedure Ordered: Limited Echo Procedure Status: Routine study Image Quality: Adequate Facility Location: Cardiac Echo 1 (No Signature Object) Patient: JAIRO STEVEN Study Date: 09/12/2018 Page 1 of 1 09:55 AM [id number]
--- NOTE | 2018-09-12 15:37 | ASMTCMCOM ---
CM Note CM Note Notes: At this time PT/OT recommending inpt rehab. No orders at this time. CM spoke with Cardiology and they said they feel pt will continue to improve and a SNF will likely be more appropriate. Dispo needs TBD at this time, CM to collaborate with Cardiology on discharge planning. Plan: TBD Date Signed: 09/12/2018 03:36 PM Electronically Signed By:MARILYN Jimenes
--- NOTE | 2018-09-12 15:51 | PCMIDPN ---
Assessment/Plan: Assessment: 72-year-old man admitted with syncope due to cardiac causes found to have received a left hand by from his domestic dog at the time of admission. The left hand has essentially resolved back to normal with full range of motion and minimal edema, no further erythema. There is no suggestion of deeper soft tissue infection, including no evidence for tenosynovitis. Dog bite was after he had started his dog from sleep. The dog is not displayed abnormal behavior, does not run outside be on close contact with the patient, does not catch/kill rodents. Patient has no paresthesias in the hand or other areas to suggest rabies exposure. 1. Left hand cellulitis secondary to domestic dog bite sustained 09/04/2018; improved 2. Status post CABG x4 09/10/2018 3. Acute kidney injury present on admission, resolved 4. Probable CKD 5. Thrombocytopenia, mild Plan: 1. Continue Unasyn with a plan to complete 7 days 2. Stop Unasyn after doses on 09/13/2018; stop date placed 3. Reviewed in detail potential side effects of beta-lactam antibiotics to include: allergy, rash, nausea, antibiotic-associated diarrhea, Clostridioides difficile colitis. Singh Joseph MD Infectious Diseases 09/12/18 15:54 Subjective: No fever or chills in the past 24-hours. No diarrhea, nausea, or other GI symptoms. No rash. Left hand improved since admission with full range of motion in minimal residual edema with complete resolution of erythema. Objective: Vital Signs Temp Pulse Resp BP Pulse Ox 36.7 C 65 17 88/44 L 94 09/12/18 12:00 09/12/18 15:00 09/12/18 15:00 09/12/18 15:00 09/12/18 15:00 Laboratory Results 09/12/18 04:15 09/12/18 04:15 09/11/18 09/12/18 09/13/18 05:59 05:59 05:59 Intake Total 3109 3489 Output Total 8602 8311 627 Balance 061 9738 -308 Medications Generic Name Dose Route Start Last Admin Trade Name Freq PRN Reason Stop Dose Admin Ampicillin Sodium/Sulbactam 100 mls @ 200 mls/hr 09/06/18 21:00 09/12/18 14: 20 Sodium 3 gm/ Sodium Chloride IV 10/06/18 20:59 100 mls Q6H MEI Protocol Discontinued Medications Generic Name Dose Route Start Last Admin Trade Name Dannyq PRN Reason Stop Dose Admin Amoxicillin/Clavulanate Potassium 875 mg 09/06/18 14:23 09/06/18 14:41 Augmentin 875mg PO 09/06/18 14:24 875 mg EDNOW ONE Protocol Laboratory Tests 09/06/18 09/10/18 09/11/18 16:15 22:30 05:00 WBC 11.98 H 12.41 H Hgb 11.7 L 11.0 L Plt Count 109 L 112 L Creatinine Urine WBC 1-3 09/12/18 09/12/18 04:15 04:15 WBC 11.76 H Hgb 10.1 L Plt Count 108 L Creatinine 1.2 Urine WBC - Physical Exam General Appearance: no apparent distress, non-toxic EENT: No scleral icterus Respiratory: No accessory muscle use, No crackles, No wheezing Neck: supple Cardiac/Chest: other (Normal S1 and S2; chest tube in place on the left), No diastolic murmur, No systolic murmur Extremities: other (Left hand with small puncture wound between the 1st and 2nd MCP joints, chronic sure around the base of the left thumb; no erythema of the left hand, full range of motion the digits of the left hand, minimal swelling of the left hand) Abdomen: other (Hypoactive bowel sounds, not distended, firm, no tenderness) Skin: other (Sternal incision with well-approximated edges, no surrounding erythema, no induration, no areas of fluctuance) Neuro/Psych: alert, normal mood/affect, oriented x 3, No confused - Time Spent With Patient Time Spent with Patient: greater than 25 minutes Time Spent with Patient: Greater than 25 minutes spent on this patients care, greater than 50% of time spent counseling, educating, and coordinating care regarding the above mentioned plan. ICD10 Worksheet Patient Problems: Problems Problem Status Onset Acute blood loss anemia Acute Aortic insufficiency Acute Cellulitis Acute Coronary artery disease Acute Mild ascending aorta dilatation Acute S/P CABG x 4 Acute ~09/10/18 Syncope Acute
[2018-09-12] MEDS: oxyCODONE IR 5 MG TAB PO PRN (22:27)
[2018-09-13] MEDS: AMPICILLIN/SULBACTAM 3 GM in NS 100 ML IV SCH ×4 (03:26→21:22)
[2018-09-13] MEDS: HEPARIN 5,000 UNIT/0.5 ML INJ SC SCH ×3 (04:45→21:23)
[2018-09-13] MEDS: oxyCODONE IR 5 MG TAB PO PRN (04:58)
[2018-09-13] MEDS ORDERED: ALBUMIN 5% 250 ML BOTTLE IV ONE (06:39)
--- NOTE | 2018-09-13 06:42 | SOAPPROG ---
SOAP Progress Note Assessment/Plan: POD #3: Urgent CABGx4 (ANDERSON-LAD, SVG-DIAG, SVG-CIRC, SVG-PDA), EVH L, AtriClip KERLINE Unstable angina w severe 3-vessel CAD and preserved EF - s/p CABGx4. CTs to be removed this AM. Possible removal of PW as well. Secondary prevention w ASA, BB , and statin when appropriate. Acute post-op blood loss anemia w thrombocytopenia - s/p 1U PRBC. Monitor. Post-op atrial fibrillation with RVR - conversion to SR with Amiodarone. Beta- susi when appropriate. CHADS2-VASC 3. Consider thromboprophylaxis with Eliquis if persistent. Mild-moderate AI - AVR deferred. Mgmt as per cardiology. Left hand cellulitis 2/2 canine bite w resolved ascending lymphadenitis - no evidence abscess or joint involvement. Antibiotic therapy IV Unasyn through as per ID. Acute Kidney Injury - Cr 1.3 this AM. Dopamine weaned off. Continue fluid bolus prn. DVT ppx - heparin/SCDs. Disposition - ICU care until BP stable. Subjective: Denies pain/SOB. Objective: Vital Signs Temp Pulse Resp BP Pulse Ox 37.5 C 85 20 99/59 L 92 09/13/18 05:00 09/13/18 06:00 09/13/18 06:00 09/13/18 06:00 09/13/18 06:00 Laboratory Results 09/13/18 04:40 09/13/18 04:40 09/12/18 09/13/18 09/14/18 05:59 05:59 05:59 Intake Total 3603 4462 Output Total 1085 1360 Balance 2518 3102 PT 13.6 SEC (12.0-15.0) 09/07/18 13:20 INR 1.08 (0.83-1.16) 09/07/18 13:20 Physical Exam - Physical Exam General Appearance: WD/WN, alert, no apparent distress EENT: No scleral icterus (R), No scleral icterus (L) Neck: normal inspection Respiratory: No respiratory distress Cardiac/Chest: regular rate, rhythm Abdomen: non-tender, soft, No distended Skin: normal color, warm/dry Extremities: No pedal edema Neuro/Psych: no motor/sensory deficits, alert, normal mood/affect, oriented x 3 ICD10 Worksheet Patient Problems: Problems Problem Status Onset Acute blood loss anemia Acute Aortic insufficiency Acute Cellulitis Acute Coronary artery disease Acute Mild ascending aorta dilatation Acute S/P CABG x 4 Acute ~09/10/18 Syncope Acute
[2018-09-13] MEDS ORDERED: ALBUMIN 5% 250 ML IV ONE (07:00)
[2018-09-13] MEDS: AMIODARONE HCL 200 MG TAB PO SCH ×2 (08:28→21:22)
[2018-09-13] MEDS: ASPIRIN 81 MG CHEWABLE TAB PO SCH (08:28)
[2018-09-13] MEDS: SENNOSIDES/DOCUSATE SODIUM TAB PO SCH ×2 (08:28→21:23)
[2018-09-13] MEDS: PANTOPRAZOLE SODIUM 40 MG TAB PO SCH (08:28)
--- NOTE | 2018-09-13 09:55 | PCMIDPN ---
Assessment/Plan: Assessment: 72-year-old man admitted with syncope due to cardiac causes found to have received a left hand by from his domestic dog at the time of admission. Overall resolved left hand cellulitis with no evidence for tenosynovitis. Tingling stated initially this morning but corrected himself to say itching. No other neurologic symptoms. 1. Left hand cellulitis secondary to domestic dog bite sustained 09/04/2018; resolved 2. Status post CABG x4 09/10/2018 3. Acute kidney injury present on admission, resolved 4. Probable CKD 5. Thrombocytopenia, mild; Improved Plan: 1. Continue Unasyn with a plan to complete 7 days 2. Stop Unasyn after doses on 09/13/2018; stop date placed 3. Reviewed in detail potential side effects of beta-lactam antibiotics to include: allergy, rash, nausea, antibiotic-associated diarrhea, Clostridioides difficile colitis. 4. Will follow while inpatient to ensure no recurrence of left hand erythema or edema after antibiotics stopped Singh Joseph MD Infectious Diseases 09/13/18 09:55 Subjective: No fever or chills in the past 24-hours. Left hand with full range of motion and feels back to normal with no residual swelling or pain. States "tingling" over the puncture site between the 1st and 2nd MCP joints which he corrects to "itchy". No bowel movements since surgery but passing flatus. Appetite improving today. Objective: Vital Signs Temp Pulse Resp BP Pulse Ox 37.1 C 76 19 90/56 L 96 09/13/18 09:00 09/13/18 09:00 09/13/18 09:00 09/13/18 09:00 09/13/18 09:00 Laboratory Results 09/13/18 04:40 09/13/18 04:40 09/12/18 09/13/18 09/14/18 05:59 05:59 05:59 Intake Total 3603 4462 Output Total 6285 1360 80 Balance 4328 3102 -80 Medications Generic Name Dose Route Start Last Admin Trade Name Freq PRN Reason Stop Dose Admin Ampicillin Sodium/Sulbactam 100 mls @ 200 mls/hr 09/06/18 21:00 09/13/18 08: 39 Sodium 3 gm/ Sodium Chloride IV 09/13/18 23:00 100 mls Q6H [facility] Protocol Laboratory Tests 09/11/18 09/12/18 09/13/18 05:00 04:15 04:40 WBC 12.41 H 11.76 H 10.26 H Hgb 11.0 L 10.1 L 10.5 L Plt Count 112 L 108 L 118 L - Physical Exam General Appearance: no apparent distress, obese, non-toxic EENT: No scleral icterus Respiratory: No respiratory distress, No accessory muscle use Neck: full range of motion, supple Skin: No erythema Neuro/Psych: alert, oriented x 3, depressed affect, No confused ICD10 Worksheet Patient Problems: Problems Problem Status Onset Acute blood loss anemia Acute Aortic insufficiency Acute Cellulitis Acute Coronary artery disease Acute Mild ascending aorta dilatation Acute S/P CABG x 4 Acute ~09/10/18 Syncope Acute
--- NOTE | 2018-09-13 10:35 | PDINTPN ---
Entry Level Account Representative Progress Note Assessment/Plan: ASSESSMENT 72 yo male with severe CAD s/p 4 vessel cabg 09/09/17 and atriclip KERLINE whose post op course has been complicated by shock # CAD s/p 4 vessel cabg 09/09/18. # post operative respiratory failure, improving # shock, suspect post operative vasoplegia. TTE without effusion or e/o tamponade. # cellulitis, L hand. due to dog bite, treated with unasyn per ID to complete 7 day course # obesity # KRISTI, suspected. PLAN # pressors off # trending # asa 81 # warfarin # unasyn for cellulitis to complete 7 day course # aggressive pulmonary toilet # Feeding - cardiac diet # Analgesia APAP, dilaudid # Sedation none # Thromboprophylaxis - SQ hep # Head of bed elevated # Ulcer prophylaxis - PPI # Glucose SSI # Skin no skin breakdown # Delirium - delirium precautions # dispo may be able to downgrade today if remains compensated ABX unasyn EVENTS 09/10/18 4vCABG, KERLINE CX Data IMAGING I reviewed interpreted patient's radiographic images well as formal radiology reads 09/12/2018 CXR no new focal infiltrate or pneumothorax. Support devices in appropriate position. Bilateral lower lobe linear opacities consistent with atelectasis. 09/12/2018 TTE no pericardial effusion, preserved EF 09/13/18 10:44 Subjective: amio protocol finished off DA, received one more unit of blood with improvement in BPs, only with one remaining chest tube, still with mild pain, hand improved , no new fevers, chills, nausea, vomiting, leg swelling. Objective: Vital Signs Temp Pulse Resp BP Pulse Ox 37.1 C 78 19 100/63 94 09/13/18 09:00 09/13/18 10:00 09/13/18 10:00 09/13/18 10:00 09/13/18 10:00 Laboratory Results 09/13/18 04:40 09/13/18 04:40 09/12/18 09/13/18 09/14/18 05:59 05:59 05:59 Intake Total 3603 4462 350 Output Total 1085 1360 80 Balance 2518 3102 270 PT 13.6 SEC (12.0-15.0) 09/07/18 13:20 INR 1.08 (0.83-1.16) 09/07/18 13:20 Physical Exam - Physical Exam General Appearance: alert EENT: PERRL/EOMI, normal ENT inspection, other (Right IJ in place) Neck: No thyromegaly, No subcutaneous emphysema Respiratory: lungs clear, normal breath sounds, other Cardiac/Chest: regular rate, rhythm, other (Midline sternotomy site clean dry and intact), No edema, No JVD Abdomen: normal bowel sounds, non-tender Back: Normal inspection Skin: normal color, warm/dry, No cyanosis Extremities: normal range of motion, non-tender Neuro/Psych: no motor/sensory deficits, alert, normal mood/affect, oriented x 3 ICD10 Worksheet Patient Problems: Problems Problem Status Onset Acute blood loss anemia Acute Aortic insufficiency Acute Cellulitis Acute Coronary artery disease Acute Mild ascending aorta dilatation Acute S/P CABG x 4 Acute ~09/10/18 Syncope Acute
[2018-09-13] MEDS ORDERED: FUROSEMIDE 40 MG/4 ML VIAL IVP ONE (12:15)
--- NOTE | 2018-09-13 14:32 | ASMTCMCOM ---
CM Note CM Note Notes: Spoke w patient re: discharge planning. He is amenable to a SNF stay. He requested referrals to [facility] and [facility]. [facility] did not have any beds, so I had [facility] request authorization from patient's insurance company. Case Management will follow. Date Signed: 09/13/2018 02:31 PM Electronically Signed By:Mar Rizvi RN
[2018-09-13] MEDS: traMADol 50 MG TAB PO PRN ×2 (21:33→23:08)
[2018-09-14] MEDS: HEPARIN 5,000 UNIT/0.5 ML INJ SC SCH ×3 (06:38→21:52)
[2018-09-14] MEDS: AMIODARONE HCL 200 MG TAB PO SCH ×2 (08:30→21:53)
[2018-09-14] MEDS: ASPIRIN 81 MG CHEWABLE TAB PO SCH (08:30)
[2018-09-14] MEDS: PANTOPRAZOLE SODIUM 40 MG TAB PO SCH (08:30)
--- NOTE | 2018-09-14 08:39 | SOAPPROG ---
SOAP Progress Note Assessment/Plan: Assessment: POD#4 Urgent CABGx4 (ANDERSON-LAD, SVG-Dx, SVG-OM, SVG-PDA), EVH LLE, prophylactic AtriClip ligation KERLINE Sx severe CAD with preserved LV systolic fx - s/p CABGx4. Extubated in the OR. Transient pressor support. Moderate volume overload well tolerated. TCPWs and 1 of 2 CTs out. Secondary prevention w ASA. BB and statin when appropriate. Skilled for SNF by PT. Dilated asc aorta with mild and mild to mod AI - No intervention deemed necessary. Surveillance per cards. Left hand cellulitis from domestic dog bite - No evidence abscess or joint involvement. Resolved on course of Unasyn as directed by ID. Acute expected blood loss anemia w thrombocytopenia - Stable s/p 2u PRBC (for volume moreso than marginal H/H). Appropriate platelet rebound. VTE prophylaxis with sq hep/SCDs. Postop PAF - Conversion to SR with Amiodarone. Adjunctive beta-susi as allowed by BP. [id number] 3. Consider DOAC if recurrent arrhythmia. Plan: Start Lipitor tonight. Intensify diuresis. Consider removal left pleural drain later today. Relax bowel regimen. Cont inc activity as tolerated. Dispo - Anticipate SNF in 2-3 days. 09/14/18 08:32 Subjective: Doing ok. Improving stamina and mobility. Min pain. +BMs. Objective: Vital Signs Temp Pulse Resp BP Pulse Ox 36.5 C 66 15 94/60 L 96 09/14/18 07:38 09/14/18 07:38 09/14/18 07:38 09/14/18 07:38 09/14/18 07:38 Laboratory Results 09/14/18 05:50 09/14/18 05:50 09/13/18 09/14/18 09/15/18 05:59 05:59 05:59 Intake Total 4462 1550 Output Total 1360 1745 Balance 3102 -195 PT 13.6 SEC (12.0-15.0) 09/07/18 13:20 INR 1.08 (0.83-1.16) 09/07/18 13:20 Holding SR. SBP remains somewhat labile, occ dipping into 90s. Borderline suppl O2 req. Improving fluid balance. +8 kg overall. CXR-> tiny rt pleural effusion, bibasilar atelectasis Labs ok. Physical Exam - Physical Exam General Appearance: alert, no apparent distress Respiratory: lungs clear (grossly), other (keri to bulb suction, mostly serous drainage.) Cardiac/Chest: regular rate, rhythm, other (Sternotomy and LLE venotomy CDI) Abdomen: non-tender, soft Skin: warm/dry Extremities: swelling (1+ gen) ICD10 Worksheet Patient Problems: Problems Problem Status Onset Acute blood loss anemia Acute Aortic insufficiency Acute Cellulitis Acute Coronary artery disease Acute Mild ascending aorta dilatation Acute S/P CABG x 4 Acute ~09/10/18 Syncope Acute
[2018-09-14] MEDS: SENNOSIDES/DOCUSATE SODIUM TAB PO SCH (10:07)
[2018-09-14] MEDS ORDERED: SENNOSIDES/DOCUSATE SODIUM TAB PO PRN (10:12)
[2018-09-14] MEDS: FUROSEMIDE 40 MG TAB PO SCH (15:05)
[2018-09-14] MEDS: POTASSIUM CL 20 MEQ TAB PO SCH ×2 (16:19→21:53)
[2018-09-14] MEDS: traMADol 50 MG TAB PO PRN (21:53)
[2018-09-14] MEDS: ATORVASTATIN CALCIUM 40 MG TAB PO SCH (21:53)
[2018-09-15] MEDS: HEPARIN 5,000 UNIT/0.5 ML INJ SC SCH ×3 (05:34→21:28)
[2018-09-15] MEDS: traMADol 50 MG TAB PO PRN ×2 (05:34→10:16)
--- NOTE | 2018-09-15 07:03 | SOAPPROG ---
SOAP Progress Note Assessment/Plan: Assessment: POD#5 Urgent CABGx4 (ANDERSON-LAD, SVG-Dx, SVG-OM, SVG-PDA), EVH LLE, prophylactic AtriClip ligation KERLINE Sx severe CAD with preserved LV systolic fx - s/p CABGx4. Extubated in the OR. Transient pressor support. Moderate volume overload well tolerated. TCPWs and 1 of 2 CTs out. Secondary prevention w ASA and statin. Unable to start BB d/t labile BP and borderline HR. Dilated asc aorta with mild and mild to mod AI - No intervention deemed necessary. Surveillance per cards. Left hand cellulitis from domestic dog bite - No evidence abscess or joint involvement. Resolved on course of Unasyn as directed by ID. Acute expected blood loss anemia w thrombocytopenia - Stable s/p 2u PRBC (for volume moreso than marginal H/H). Appropriate platelet rebound. VTE prophylaxis with sq hep/SCDs. Postop PAF - Conversion to SR with Amiodarone. Adjunctive beta-susi as allowed by BP. [id number] 3. Consider DOAC if recurrent arrhythmia. Plan: Remove last CT Supplement K BMP tomorrow, PRN CBC/CXR SNF Monday Subjective: Doing well. Concerned about transport for planned Monday discharge. Objective: Vital Signs Temp Pulse Resp BP Pulse Ox 37.2 C 68 16 98/60 L 96 09/14/18 20:00 09/15/18 04:00 09/15/18 04:00 09/15/18 04:00 09/15/18 04:00 Laboratory Results 09/15/18 05:27 09/15/18 05:27 09/14/18 09/15/18 09/16/18 05:59 05:59 05:59 Intake Total 1550 1650 Output Total 1745 1060 Balance -195 590 PT 13.6 SEC (12.0-15.0) 09/07/18 13:20 INR 1.08 (0.83-1.16) 09/07/18 13:20 - Physical Exam General Appearance: alert, no apparent distress Respiratory: lungs clear (grossly), other (keri to bulb suction, mostly serous drainage.) Cardiac/Chest: regular rate, rhythm, other (Sternotomy and LLE venotomy CDI) Abdomen: non-tender, soft Skin: warm/dry Extremities: swelling (1+ gen) ICD10 Worksheet Patient Problems: Problems Problem Status Onset Acute blood loss anemia Acute Aortic insufficiency Acute Cellulitis Acute Coronary artery disease Acute Mild ascending aorta dilatation Acute S/P CABG x 4 Acute ~09/10/18 Syncope Acute
[2018-09-15] MEDS ORDERED: POTASSIUM CL 10 MEQ TAB PO ONE (07:32)
[2018-09-15] MEDS: POTASSIUM CL 20 MEQ TAB PO SCH ×2 (09:08→21:28)
[2018-09-15] MEDS: PANTOPRAZOLE SODIUM 40 MG TAB PO SCH (09:08)
[2018-09-15] MEDS: AMIODARONE HCL 200 MG TAB PO SCH ×2 (09:08→21:28)
[2018-09-15] MEDS: FUROSEMIDE 40 MG TAB PO SCH ×2 (09:08→15:23)
[2018-09-15] MEDS: ASPIRIN 81 MG CHEWABLE TAB PO SCH (09:08)
--- NOTE | 2018-09-15 09:20 | ASMTCMCOM ---
CM Note CM Note Notes: Met with patient and cardiothoracic surgery PA - we anticipate discharge Sunday 09/17. Patient is amenable to SNF and has chosen [facility]. We have submitted all paperwork to [facility] but they are awaiting authorization from [facility]. Case Management will continue to follow. Patient's sister in law Krupa is MDPOA. Current CM Discharge plan: [facility] Date Signed: 09/15/2018 09:19 AM Electronically Signed By:Mar iRzvi RN
[2018-09-15] MEDS: ATORVASTATIN CALCIUM 40 MG TAB PO SCH (21:28)
[2018-09-16] MEDS: traMADol 50 MG TAB PO PRN ×2 (05:01→22:02)
[2018-09-16] MEDS: HEPARIN 5,000 UNIT/0.5 ML INJ SC SCH ×3 (05:02→22:02)
--- NOTE | 2018-09-16 07:19 | SOAPPROG ---
SOAP Progress Note Assessment/Plan: Assessment: POD#6 Urgent CABGx4 (ANDERSON-LAD, SVG-Dx, SVG-OM, SVG-PDA), EVH LLE, prophylactic AtriClip ligation KERLINE Sx severe CAD with preserved LV systolic fx - s/p CABGx4. Extubated in the OR. Transient pressor support. Moderate volume overload well tolerated. TCPWs and CTs out. Secondary prevention w ASA and statin. Unable to start BB d/t labile BP. Dilated asc aorta with mild and mild to mod AI - No intervention deemed necessary. Surveillance per cards. Left hand cellulitis from domestic dog bite - No evidence abscess or joint involvement. Resolved on course of Unasyn as directed by ID. Acute expected blood loss anemia w thrombocytopenia - Stable s/p 2u PRBC (for volume moreso than marginal H/H). Appropriate platelet rebound. VTE prophylaxis with sq hep/SCDs. Postop PAF - Conversion to SR with Amiodarone. Adjunctive beta-susi as allowed by BP. [id number] 3. Consider DOAC if recurrent arrhythmia. Rare PACs. No room for adding BB. Post-op hypervolemia - Continue gentle diuresis in the setting of labile BP. Plan: Recheck K tomorrow AM SNF @ [facility] Monday pending authorization Subjective: Depressed. Objective: Vital Signs Temp Pulse Resp BP Pulse Ox 36.5 C 70 14 91/55 L 95 09/15/18 20:00 09/16/18 04:00 09/16/18 04:00 09/16/18 04:00 09/16/18 04:00 Laboratory Results 09/15/18 05:27 09/16/18 05:03 09/15/18 09/16/18 09/17/18 05:59 05:59 05:59 Intake Total 1650 1500 Output Total 1060 1900 Balance 590 -400 PT 13.6 SEC (12.0-15.0) 09/07/18 13:20 INR 1.08 (0.83-1.16) 09/07/18 13:20 - Physical Exam General Appearance: alert, no apparent distress Respiratory: lungs clear (grossly) Cardiac/Chest: regular rate, rhythm, other (Sternotomy and LLE venotomy CDI) Abdomen: non-tender, soft Skin: warm/dry Extremities: swelling (1+ gen) ICD10 Worksheet Patient Problems: Problems Problem Status Onset Acute blood loss anemia Acute Aortic insufficiency Acute Cellulitis Acute Coronary artery disease Acute Mild ascending aorta dilatation Acute S/P CABG x 4 Acute ~09/10/18 Syncope Acute
[2018-09-16] MEDS: FUROSEMIDE 40 MG TAB PO SCH ×2 (08:49→14:29)
[2018-09-16] MEDS: ASPIRIN 81 MG CHEWABLE TAB PO SCH (08:49)
[2018-09-16] MEDS: POTASSIUM CL 20 MEQ TAB PO SCH ×2 (08:49→22:02)
[2018-09-16] MEDS: AMIODARONE HCL 200 MG TAB PO SCH ×2 (08:49→22:02)
[2018-09-16] MEDS: PANTOPRAZOLE SODIUM 40 MG TAB PO SCH (08:49)
--- NOTE | 2018-09-16 09:34 | PCMIDPN ---
Assessment/Plan: Assessment: 72-year-old man admitted with syncope due to cardiac causes found to have received a left hand by from his domestic dog at the time of admission. Left hand is recovered back to normal with no ongoing local signs or symptoms of deep, unresolved infection. 1. Left hand cellulitis secondary to domestic dog bite sustained 09/04/2018; resolved 2. Status post CABG x4 09/10/2018 3. Acute kidney injury present on admission, resolved 4. Probable CKD 5. Thrombocytopenia, mild; Improved Plan: 1. No further antimicrobial therapy directed at left hand dog bite site of cellulitis as this has completely resolved 2. Do not expect any longer term negative sequela left hand dog bite 3. Infectious Diseases will sign off please call if there are any further inquiries Singh Joseph MD Infectious Diseases 09/16/18 09:32 Subjective: No fever or chills in the past 24-hours. Tolerating oral diet with solids and liquids. He started to have loose stools but this seems related to increased stool softeners. No abdominal pain. No rash. Appetite improving. May go to rehab tomorrow. Left hand feels like it is return back to normal. Objective: Vital Signs Temp Pulse Resp BP Pulse Ox 36.8 C 64 16 99/57 L 95 09/16/18 08:00 09/16/18 08:00 09/16/18 08:00 09/16/18 08:00 09/16/18 08:00 Laboratory Results 09/15/18 05:27 09/16/18 05:03 09/15/18 09/16/18 09/17/18 05:59 05:59 05:59 Intake Total 1650 1500 100 Output Total 1060 1900 Balance 590 -400 100 Medications Discontinued Medications Generic Name Dose Route Start Last Admin Trade Name Freq PRN Reason Stop Dose Admin Ampicillin Sodium/Sulbactam 100 mls @ 200 mls/hr 09/06/18 21:00 09/13/18 21: 22 Sodium 3 gm/ Sodium Chloride IV 09/13/18 23:00 100 mls Q6H [facility] Protocol Laboratory Tests 09/11/18 09/14/18 09/16/18 05:00 05:50 05:03 WBC 12.41 H 8.72 Plt Count 112 L 141 L Creatinine 1.1 - Physical Exam General Appearance: no apparent distress, non-toxic EENT: No scleral icterus Respiratory: No respiratory distress, No accessory muscle use Neck: full range of motion, supple Skin: other (Left hand with small scab in a dog bite puncture site between 1st and 2nd and MCP joints, small scabbed lesion persist over the left thumb; there is no erythema on the left hand, he has full range of motion, no induration, and no areas of fluctuance) Neuro/Psych: alert, oriented x 3, depressed affect, No confused ICD10 Worksheet Patient Problems: Problems Problem Status Onset Acute blood loss anemia Acute Aortic insufficiency Acute Cellulitis Acute Coronary artery disease Acute Mild ascending aorta dilatation Acute S/P CABG x 4 Acute ~09/10/18 Syncope Acute
[2018-09-16] MEDS: ATORVASTATIN CALCIUM 40 MG TAB PO SCH (22:01)
[2018-09-17] MEDS: HEPARIN 5,000 UNIT/0.5 ML INJ SC SCH ×3 (05:33→22:29)
[2018-09-17] MEDS: AMIODARONE HCL 200 MG TAB PO SCH ×2 (08:08→20:24)
[2018-09-17] MEDS: ASPIRIN 81 MG CHEWABLE TAB PO SCH (08:08)
[2018-09-17] MEDS: POTASSIUM CL 20 MEQ TAB PO SCH (08:08)
[2018-09-17] MEDS: FUROSEMIDE 40 MG TAB PO SCH (08:09)
[2018-09-17] MEDS: PANTOPRAZOLE SODIUM 40 MG TAB PO SCH (08:09)
--- NOTE | 2018-09-17 08:13 | SOAPPROG ---
SOAP Progress Note Assessment/Plan: Assessment: POD#7 Urgent CABGx4 (ANDERSON-LAD, SVG-Dx, SVG-OM, SVG-PDA), EVH LLE, prophylactic AtriClip ligation KERLINE Sx severe CAD with preserved LV systolic fx - s/p CABGx4. Extubated in the OR. Transient pressor support. Actively diuresing moderate volume overload. TCPWs and CTs out. Secondary prevention w ASA and statin. Unable to start BB d/t labile BP. Skilled for SNF by PT. Dilated asc aorta with mild and mild to mod AI - No intervention deemed necessary. Surveillance per cards. Left hand cellulitis from domestic dog bite - No evidence abscess or joint involvement. Resolved on course of Unasyn as directed by ID. Acute expected blood loss anemia w thrombocytopenia - Stable s/p 2u PRBC (for volume moreso than marginal H/H). Appropriate platelet rebound. VTE prophylaxis with sq hep/SCDs. Postop PAF - Conversion to SR with Amiodarone. Insufficient BP for adjunctive BB. [id number] 3. Consider DOAC if recurrent arrhythmia. Plan: Relax diuresis. Dispo - SNF @ [facility] pending insurance auth. 09/17/18 08:13 Subjective: Doing well. Good appetite. Satisfactory analgesia. Improving stamina but still unable to walk a full lap around [place]. Objective: Vital Signs Temp Pulse Resp BP Pulse Ox 37.1 C 72 15 99/61 L 96 09/17/18 08:09 09/17/18 08:09 09/17/18 08:09 09/17/18 08:09 09/17/18 08:09 Laboratory Results 09/15/18 05:27 09/17/18 04:25 09/16/18 09/17/18 09/18/18 05:59 05:59 05:59 Intake Total 1500 1810 Output Total 1900 2700 Balance -400 -890 PT 13.6 SEC (12.0-15.0) 09/07/18 13:20 INR 1.08 (0.83-1.16) 09/07/18 13:20 Holding SR. SBP remains in 90s-100s range. Min suppl O2. Adequate fluid balance. Now within 5 kg admission wt. Physical Exam - Physical Exam General Appearance: alert, no apparent distress Respiratory: lungs clear (grossly), other (CT sites clean and moist) Cardiac/Chest: regular rate, rhythm, other (Sternum grossly stable. Sternotomy and LLE venotomy CDI) Abdomen: non-tender, soft Skin: warm/dry Extremities: swelling (trace-1+ dependent) ICD10 Worksheet Patient Problems: Problems Problem Status Onset Acute blood loss anemia Acute Aortic insufficiency Acute Cellulitis Acute Coronary artery disease Acute Mild ascending aorta dilatation Acute S/P CABG x 4 Acute ~09/10/18 Syncope Acute
--- NOTE | 2018-09-17 15:36 | ASMTCMCOM ---
CM Note CM Note Notes: I received notice from both Magdalena Kaya and an RN from [facility] that patient was denied for SNF. I called the number that the [facility] RN gave me ([phone]) and left the information needed (patient's name, and provider) to request a peer to peer to appeal the denial. I left the information for someone from [facility] to call ADEN Perdue; this will be a Dr Joel. [facility] would not give me a phone # to have our provider call Dr. Joel. Case Management will continue to follow. Date Signed: 09/17/2018 03:35 PM Electronically Signed By:Mar Rizvi RN
[2018-09-17] MEDS: ATORVASTATIN CALCIUM 40 MG TAB PO SCH (20:24)
[2018-09-18] MEDS: HEPARIN 5,000 UNIT/0.5 ML INJ SC SCH ×2 (05:08→14:03)
--- NOTE | 2018-09-18 07:41 | SOAPPROG ---
SOAP Progress Note Assessment/Plan: Assessment: POD#8 Urgent CABGx4 (ANDERSON-LAD, SVG-Dx, SVG-OM, SVG-PDA), EVH LLE, prophylactic AtriClip ligation KERLINE Sx severe CAD with preserved LV systolic fx - s/p CABGx4. Extubated in the OR. Transient pressor support. Actively diuresing moderate volume overload. TCPWs and CTs out. Secondary prevention w ASA and statin. Unable to start BB d/t labile BP. Skilled for SNF by PT. Dilated asc aorta with mild and mild to mod AI - No intervention deemed necessary. Surveillance per cards. Left hand cellulitis from domestic dog bite - No evidence abscess or joint involvement. Resolved on course of Unasyn as directed by ID. Acute expected blood loss anemia w thrombocytopenia - Stable s/p 2u PRBC (for volume moreso than marginal H/H). Appropriate platelet rebound. VTE prophylaxis with sq hep/SCDs. Postop PAF - Conversion to SR with Amiodarone. Insufficient BP for adjunctive BB. [id number] 3. Consider DOAC if recurrent arrhythmia. Plan: Cont current meds. Ck CXR. Dispo - SNF @ [facility] pending insurance auth. [facility] if denied coverage. 09/18/18 07:40 Subjective: Doing ok. Tweaked his weak knee and having a little more difficulty walking. Easily breathless with activity. Worried about his and her needs. Objective: Vital Signs Temp Pulse Resp BP Pulse Ox 36.9 C 77 20 109/64 91 L 09/18/18 07:32 09/18/18 07:32 09/18/18 07:32 09/18/18 07:32 09/18/18 07:32 Laboratory Results 09/15/18 05:27 09/17/18 04:25 09/17/18 09/18/18 09/19/18 05:59 05:59 05:59 Intake Total 1810 1040 Output Total 2700 1775 Balance -890 -735 PT 13.6 SEC (12.0-15.0) 09/07/18 13:20 INR 1.08 (0.83-1.16) 09/07/18 13:20 Holding SR Uptrending SBPs Suppl O2 req remains somewhat elevated Adequate fluid balance. +3 kg overall. Physical Exam - Physical Exam General Appearance: alert, no apparent distress Respiratory: decreased breath sounds (bases), other (CT sites clean and dry) Cardiac/Chest: regular rate, rhythm, other (Sternotomy and LLE venotomy CDI) Abdomen: non-tender, soft Skin: warm/dry Extremities: swelling (trace RLE, 1+ dependent LLE (donor)) ICD10 Worksheet Patient Problems: Problems Problem Status Onset Acute blood loss anemia Acute Aortic insufficiency Acute Cellulitis Acute Coronary artery disease Acute Mild ascending aorta dilatation Acute S/P CABG x 4 Acute ~09/10/18 Syncope Acute
[2018-09-18] MEDS: ASPIRIN 81 MG CHEWABLE TAB PO SCH (08:42)
[2018-09-18] MEDS: AMIODARONE HCL 200 MG TAB PO SCH (08:42)
[2018-09-18] MEDS ORDERED: POTASSIUM CL 20 MEQ TAB PO SCH (09:00)
[2018-09-18] MEDS ORDERED: FUROSEMIDE 40 MG TAB PO SCH (09:00)
[2018-09-18 11:53] VITALS: BP 103/62
--- NOTE | 2018-09-18 13:02 | PDIAF ---
- Diagnosis Diagnosis: CAD s/p CABG, postop PAF Code Status: Full Code - Medication Management Discharge Medications: electronically signed and located in the Home Medication List. PICC Care - Routine: N/A - Orders Services needed: Registered Nurse (cardiorespiratory monitoring), Physical Therapy (sternal precautions), Occupational Therapy (functional mobility) Isolation Type: None Oxygen: prn SpO2 < 90% Diet Recommendation: cardiac -low fat low salt, fluid restriction (use comment for amount) (2 liters daily) Diet Texture: Regular Texture Diet Weigh Patient: daily Alejo: Not applicable Wound Care Instructions: daily soap and water. no ointments. ok to leave open to air Activity/Weight Bearing Restrictions: Sternal precautions x 3 more weeks. Avoid push pull activities. Avoid lifting > 10 lbs with an outstretched arm Additional Instructions: Call [facility] cardiac rehab to enroll in phase 2 classes once released from rehab. Sternal precautions x 3 more weeks. Avoid lifting > 10lbs with an outstretched arm. Avoid push/pull activities. Cleanse wounds once daily with soap and water. Avoid underwater immersion (pool , hot tub, bath) until scabs off. Ok to leave all wounds open to air. Avoid creams or ointments until scabs off. Elevate low legs at rest. Avoid prolonged standing or dangling. Log daily vital signs: weight, resting heart rate over 1 minute, blood pressure , +/- pulse oximetry. Call [employer] for overnight weight gain > 2lbs, weekly gain > 5lbs or worsening leg swelling. Call [employer] for resting heart rate > 120 or < 60 OR for systolic blood pressure consistently < 90 or > 140. Target oxygen saturation > 89%. Adjustments per cardiac rehab. Please obtain a chest xray prior to surgical appointment. Use requisition form attached to appointment card. Chest x-rays don't require an appointment. Go to the Emergency Room entrance at the [facility] location. Sign in at the computer kiosk in the entryway. You will be given a number & may sit in the waiting area until called. You will be registered and directed to Imaging on the 1st floor. This process can take up to an hour. Please allow at least 30 min before your appt to get x-ray taken. Ok to use [id number] medications for iron supplementation, bowel function or pain. Consider Tylenol 500-650 mg with meals and before bed. Max daily dose of Tylenol 3000 mg. Avoid nonsteroidal anti-inflammatories (ie. Ibuprofen, advil, motrin, aleve) x 3 months for interference with beneficial effects of aspirin on graft flow. - Labs/Radiology Imaging Orders: chest xray prior to surgical appointment - Follow Up Care Current Providers and Referrals: Isidoro Montenegro MD [Medical Doctor] - (Follow up 4-6 weeks. Appt to be established during surgical visit.) Liam Bustos DO [Doctor of Osteopathy] - 09/25/18 11:45 am Patient,NotPresent [Unknown] - As per Instructions
--- NOTE | 2018-09-18 13:04 | PDDCSUM ---
Discharge Summary Discharge Summary: DATE OF ADMISSION: 09/06/18 DATE OF DISCHARGE: 09/18/18 DISPOSITION: Transferred to [facility] PRINCIPAL DISCHARGE DIAGNOSES: 1. Left hand cellulitis from domestic dog bite resolved on antibiotics 2. Hypovolemic hypotension and acute kidney injury resolved with supportive therapy 3. Mild ascending aortic dilatation with mild aortic valve insufficiency 4. Severe multivessel coronary artery disease, treated with coronary artery bypass grafting x 4 5. Acute expected blood loss anemia with thrombocytopenia 6. Postoperative paroxysmal atrial fibrillation, status post prophylactic exclusion of left atrial appendage FOLLOW UP APPOINTMENTS: 1. CV surgery: with Dr Bustos at [facility] on 09/25 at 11:45 am. 2. Cardiology: with Dr Montenegro at [facility] within 4-6 weeks. Appointment to be established during surgical visit. FOLLOW UP TESTING: CXR prior to surgical appointment. ALLERGIES/SENSITIVITIES: NKDA DISCHARGE MEDICATIONS: see medical administration record for full details 1. Hold Lisinopril 20 mg daily NEW prescriptions: 1. Aspirin 81 mg daily 2. Amiodarone 200 mg BID 3. Lipitor 40 mg nightly 4. Lasix 40 mg daily 5. Klor-Con 20 meq daily with Lasix 6. Tramadol 50-100 mg q6 hrs prn incisional discomfort 7. Oxygen continuously @ 1.5 Lpm or as directed by SpO2 CONSULTANTS: Cardiology (Lan), Infectious Diseases (Laz), Hand surgery (Estephania), CV surgery (Akash), Pulmonology/critical care (Michel) PROCEDURES/IMAGIN/15 (Lan): Transthoracic echocardiogram: Nl BiV size and systolic fx. No RWMA. LVEF 64%. Normal sized atria. Mild MAC, trivial MR and TR. Trileaflet AV with mild to moderate AI. 3.5 cm aortic root. 3.7 cm ascending aorta. 09/07 ([facility]): Left heart catheterization with selective coronary angiography and left ventriculogram. Access right radial artery. Findings: 50% proximal left main stenosis, 80% proximal LAD stenosis, 80% proximal LCX stenosis, 100% occluded RCA with distal reconstitution from LCX collaterals, LVEDP 13, LVEF 65% . 09/07 Left hand/wrist MRI with and without contrast: cellulitis along dorsal aspect of wrist, no abscess, no fracture, no evidence for osteomyelitis. 09/08 Carotid Ultrasound: Mild right and minimal left carotid bulb plaquing. 09/10 (Akash): Urgent coronary artery bypass grafting x 4 (ANDERSON-LAD, SV-Dx, SV-OM , SV-PDA). Takedown left internal mammary artery. Endoscopic vein harvest LLE. Prophylactic AtriClip exclusion of the left atrial appendage. 09/12 (Christina): Limited transthoracic echocardiogram: Normal LVEF. Trivial pericardial effusion. HISTORY OF PRESENT ILLNESS: 72 yo male with hand cellulitis from a recent domestic dog bite admitted for further evaluation after a syncopal episode at work. Suspected to have suffered a vasovagal episode secondary to mild dehydration, relative hypotension (Cr 1.7) , lymphangitis, and possible cardiac abnormality. Medically stabilized and cardiac work-up undertaken. Demonstrated to have severe multivessel CAD (with a chronically occluded right coronary artery and a left main equivalent) and referred for urgent surgical revascularization. Left hand clinically improved on Unasyn with imaging negative for joint, bone or tendon involvement. PERTINENT PAST MEDICAL HISTORY: Syncopal episode 3 yrs ago with negative workup for ischemia or arrhythmia, HTN , migraine headaches, GERD, obesity w BMI > 30 ABBREVIATED HOSPITAL COURSE BY ACTIVE PROBLEM LIST: 1. Sx severe CAD with preserved LV systolic fx - s/p CABGx4. Extubated in the OR. Transient pressor support. Moderate volume overload actively diuresed with stable renal fx. Secondary prevention w ASA and statin. Unable to start BB d/t labile BP. Skilled for SNF by PT. 2. Dilated asc aorta with mild and mild AI - No intervention deemed necessary. Surveillance per cards. 3. Left hand cellulitis from domestic dog bite - Resolved on course of Unasyn as directed by ID. 4. Acute expected blood loss anemia w thrombocytopenia - Stable s/p 2u PRBC. Appropriate platelet rebound noted. 5. Postop PAF - Conversion to SR with Amiodarone. Insufficient BP for adjunctive BB. [id number] 3. Consider DOAC if recurrent arrhythmia.
--- NOTE | 2018-09-18 15:04 | ASMTDCNOTE ---
Case Management Discharge Discharge Order Complete? Answers: Yes Patient to Obtain Answers: Other Notes: [facility] Medications Transportation Arranged Answers: Other Notes: [facility] w/c transpor t Transport will Pick (Date 09/18/2018 04:00 PM & Time) EMTALA Complete Answers: No Case Management Transport Answers: No Form Complete Faxed Final Orders Answers: Yes Agency/Facility Transfer Answers: Yes Report Printed & Faxed to Receiving Agency Family Notified Answers: No Discharge Comments Notes: Pt is being d/c'd today. Clara has approved pt to d/c to [facility]. DC orders sent. COTY Cruz will call to give report. CM available for changes. Plan: [facility] Date Signed: 09/18/2018 03:03 PM Electronically Signed By:MARILYN Leger
== END 2018-09-18 16:13 | DRG 234 ==
LOC: EDUNIT# → INTOOBSV 14:30 → F2W 15:35 → OBSVTOIN 09-07 13:17 → F2N 09-10 08:58 → F2W 09-17 15:23
PROVIDERS: ADMIT Internal Medicine; ATTEND Internal Medicine
PROC: 4A023N8 Measurement of Cardiac Sampling and Pressure, Bilateral, Percutaneous Approach (ICD-10-PCS; 2018-09-07)
PROC: B2151ZZ Fluoroscopy of Left Heart using Low Osmolar Contrast (ICD-10-PCS; 2018-09-07)
PROC: B2111ZZ Fluoroscopy of Multiple Coronary Arteries using Low Osmolar Contrast (ICD-10-PCS; 2018-09-07)
PROC: 02100Z9 Bypass Coronary Artery, One Artery from Left Internal Mammary, Open Approach (ICD-10-PCS; principal; 2018-09-10 07:15)
PROC: 06BQ4ZZ Excision of Left Saphenous Vein, Percutaneous Endoscopic Approach (ICD-10-PCS; principal; 2018-09-10 07:15)
PROC: 5A1221Z Performance of Cardiac Output, Continuous (ICD-10-PCS; principal; 2018-09-10 07:15)
PROC: 021209W Bypass Coronary Artery, Three Arteries from Aorta with Autologous Venous Tissue, Open Approach (ICD-10-PCS; principal; 2018-09-10 07:15)
PROC: 02L70CK Occlusion of Left Atrial Appendage with Extraluminal Device, Open Approach (ICD-10-PCS; principal; 2018-09-10 07:15)
PROC: 30233N1 Transfusion of Nonautologous Red Blood Cells into Peripheral Vein, Percutaneous Approach (ICD-10-PCS; 2018-09-12)
DX: I25.110 Atherosclerotic heart disease of native coronary artery with unstable angina pectoris (principal); L03.114 Cellulitis of left upper limb; N17.9 Acute kidney failure, unspecified; D62 Acute posthemorrhagic anemia; I95.9 Hypotension, unspecified; I48.0 Paroxysmal atrial fibrillation; E86.1 Hypovolemia; D69.6 Thrombocytopenia, unspecified; E86.0 Dehydration; S61.452S Open bite of left hand, sequela; I35.0 Nonrheumatic aortic (valve) stenosis; I35.1 Nonrheumatic aortic (valve) insufficiency; I10 Essential (primary) hypertension; G43.909 Migraine, unspecified, not intractable, without status migrainosus; K21.9 Gastro-esophageal reflux disease without esophagitis; E66.9 Obesity, unspecified; G47.33 Obstructive sleep apnea (adult) (pediatric); Z23 Encounter for immunization
CPT/HCPCS: 82435-PO; 82565-PO; 82947-PO; 83605-ER; 84132-PO; 84295-PO; 84484-ER; 84520-PO; 85014-ER; 97110-GP; 97116-GP; 97161-GP; 97166-GO; 97530-GO; 97530-GP; 97535-GO; A9585; G0009; G0378; J0153; J0282; J0295; J0690; J1100; J1265; J1644; J1815; J1885; J1940; J2001; J2150; J2250; J2260; J2270; J2370; J2405; J2440; J2704; J2720; J2765; J2930; J3010; J3475; P9016; P9041; Q9967

== ENCOUNTER → 2018-09-25 | Outpatient (CLI) | payer OTHER | LOC: FIMAGING 12:04 | PROVIDERS: ATTEND Thoracic Surgery (Cardiothoracic Vascular Surgery) | DX: I51.7 Cardiomegaly (principal); Z95.1 Presence of aortocoronary bypass graft; J90 Pleural effusion, not elsewhere classified ==

== ENCOUNTER → 2018-10-09 | Outpatient (CLI) | payer OTHER | LOC: FIMAGING 10:22 | PROVIDERS: ATTEND Thoracic Surgery (Cardiothoracic Vascular Surgery) | DX: Z09 Encounter for follow-up examination after completed treatment for conditions other than malignant neoplasm (principal); Z95.5 Presence of coronary angioplasty implant and graft ==